=== PATIENT | male | born 1940 | race Caucasian/White ===

== ENCOUNTER 2016-12-06 17:05 | Inpatient (IN) | payer MEDICARE, OTHER ==
[~2016-12-06] VITALS: Ht 188 cm; Wt 77.2 kg
[~2016-12-06 17:05] MED LIST: BENA5; COUM5TAB PO; DIGO.125 PO; HYDR10TA16 PO; MULT-65 PO; WARF1TAB PO
[2016-12-06 18:29] VITALS: BP 144/90; PULSE 64; RESP 18; TEMP 98.2; O2SAT 98
[2016-12-06] MEDS ORDERED: WARF-18 PO (18:47)
[2016-12-06] MEDS ORDERED: DIGO0.12 PO (18:47)
[2016-12-06] MEDS ORDERED: OXYC-432 PO (18:47)
[2016-12-06] MEDS ORDERED: FERR325C (18:47)
[2016-12-06] MEDS ORDERED: BENA5TAB PO (18:47)
[2016-12-06] MEDS ORDERED: WARF-23 PO (18:47)
[2016-12-06] MEDS ORDERED: FERR1TAB37 (18:47)
[2016-12-06] MEDS ORDERED: MELO7.5T4 PO (18:49)
[2016-12-06] MEDS ORDERED: OMEP20TA PO (18:49)
--- NOTE | 2016-12-06 19:28 | PD ---
HPI Chief Complaint: Psychiatric Symptoms Time Seen by Provider: 19:23 Travel History International Travel<30 days: No Contact w/Intl Traveler<30days: No Traveled to known affect area: No History of Present Illness HPI 76-year-old male that presents to the ED for evaluation of psychiatric illness. Patient was [facility] acted eye nor drinker after he apparently appeared to be confused and altered. Patient went to the urgent care as he accidentally cut himself on his left fifth digit. Per patient he received care and had sutures but when he was asked about where he was he seemed to answer inappropriately and he was [facility] acted because patient refused to come to the ER to get evaluated for the confusion. Patient was sent to [facility] but they will not take him because he takes Coumadin. Patient takes Coumadin for atrial fibrillation. He denies any medical issues. He denies any pain of any kind. Per patient he is supposed to be going back to [place] to stay with his daughter as he recently lost his about 2 weeks ago. He denies any suicidal or homicidal ideation. He denies any psychiatric illness. He takes no medications for dementia or psychiatry. He denies any fevers chills or sweats. No other medical issues. PFSH Past Medical History Medical History: Unable to Obtain Cancer: No Cardiovascular Problems: No Diabetes: No Endocrine: No Genitourinary: No Hepatitis: No Hiatal Hernia: No Immune Disorder: No Musculoskeletal: No Neurologic: No Psychiatric: No Respiratory: No Thyroid Disease: No Past Surgical History Abdominal Surgery: Yes (BILAT HERNIA (STATES PROBABLY)) AICD: No Cardiac Surgery: No Ear Surgery: No Endocrine Surgery: No Eye Surgery: No Genitourinary Surgery: No Gynecologic Surgery: No Joint Replacement: No Oral Surgery: Yes (TONSILLECTOMY (STATES PROBABLY)) Pacemaker: No Thoracic Surgery: No Social History Alcohol Use: No Tobacco Use: No Substance Use: No Allergies-Medications (Allergen,Severity, Reaction): Coded Allergies: No Known Allergies (Unverified , 12/06/16) Reported Meds & Prescriptions Reported Meds & Active Scripts Active Reported Omeprazole 20 Mg Tab 20 Mg PO DAILY Iron (Ferrous Sulfate) 325 Mg Capsule.er Digoxin 0.125 Mg Tab 0.125 Mg PO DAILY Oxycodone-Acetaminophen 5-325 mg Tab 2 Tab PO BID PRN Benazepril (Benazepril HCl) 5 Mg Tab 5 Mg PO DAILY Warfarin 2.5 Mg Tab 2.5 Mg PO MONDAY Warfarin 5 Mg Tab 5 Mg PO SUTUWETHFRSA Review of Systems Except as stated in HPI: all other systems reviewed are Neg Physical Exam Narrative GENERAL: SKIN: Warm and dry. HEAD: Atraumatic. Normocephalic. EYES: Pupils equal and round 4 mm reactive to light and accommodation. No scleral icterus. No injection or drainage. ENT: No nasal bleeding or discharge. Mucous membranes pink and moist. Tongue is midline. No uvula deviation. NECK: Trachea midline. No JVD. CARDIOVASCULAR: Regular rate and rhythm. No murmurs, S3, S4. RESPIRATORY: No accessory muscle use. Clear to auscultation. Breath sounds equal bilaterally. GASTROINTESTINAL: Abdomen soft, non-tender, nondistended. Hepatic and splenic margins not palpable. MUSCULOSKELETAL: Extremities without clubbing, cyanosis, or edema. No obvious deformities. Full range of motion of the upper and lower extremities bilaterally. 2+ pulses bilaterally. NEUROLOGICAL: Awake and alert and oriented 4. No obvious cranial nerve deficits. Motor grossly within normal limits. Five out of 5 muscle strength in the arms and legs. Normal speech. PSYCHIATRIC: Appropriate mood and affect; insight and judgment normal. Data Data Last Documented VS Vital Signs Date Time Temp Pulse Resp B/P Pulse Ox O2 Delivery O2 Flow Rate FiO2 12/06/16 18:29 98.2 64 18 144/90 98 Room Air Orders Complete Blood Count With Diff (12/06/16 18:34) Comprehensive Metabolic Panel (12/06/16 18:34) Urinalysis - C+S If Indicated (12/06/16 18:34) Psych Screen (12/06/16 18:34) Drug Screen, Random Urine (12/06/16 18:34) Alcohol (Ethanol) (12/06/16 18:34) Salicylates (Aspirin) (12/06/16 18:34) Tylenol (Acetaminophen) (12/06/16 18:34) Electrocardiogram (12/06/16 18:48) Prothrombin Time / Inr (Pt) (12/06/16 18:48) Act Partial Throm Time (Ptt) (12/06/16 18:48) Ct Brain W/O Iv Contrast(Rout) (12/06/16 ) Digoxin (12/06/16 19:45) Labs Laboratory Tests Test 12/06/16 12/06/16 19:02 19:22 White Blood Count 5.3 TH/MM3 Red Blood Count 3.95 MIL/MM3 Hemoglobin 11.4 GM/DL Hematocrit 34.2 % Mean Corpuscular Volume 86.7 FL Mean Corpuscular Hemoglobin 28.8 PG Mean Corpuscular Hemoglobin 33.2 % Concent Red Cell Distribution Width 15.1 % Platelet Count 174 TH/MM3 Mean Platelet Volume 8.3 FL Neutrophils (%) (Auto) 65.8 % Lymphocytes (%) (Auto) 23.3 % Monocytes (%) (Auto) 9.2 % Eosinophils (%) (Auto) 0.8 % Basophils (%) (Auto) 0.9 % Neutrophils # (Auto) 3.5 TH/MM3 Lymphocytes # (Auto) 1.2 TH/MM3 Monocytes # (Auto) 0.5 TH/MM3 Eosinophils # (Auto) 0.0 TH/MM3 Basophils # (Auto) 0.0 TH/MM3 CBC Comment DIFF FINAL Differential Comment Prothrombin Time 31.6 SEC Prothromb Time International 2.7 RATIO Ratio Activated Partial 45.9 SEC Thromboplast Time Sodium Level 132 MEQ/L Potassium Level 3.9 MEQ/L Chloride Level 96 MEQ/L Carbon Dioxide Level 27.5 MEQ/L Anion Gap 9 MEQ/L Blood Urea Nitrogen 22 MG/DL Creatinine 0.77 MG/DL Estimat Glomerular Filtration 98 ML/MIN Rate Random Glucose 95 MG/DL Calcium Level 8.7 MG/DL Total Bilirubin 0.7 MG/DL Aspartate Amino Transf 26 U/L (AST/SGOT) Alanine Aminotransferase 33 U/L (ALT/SGPT) Alkaline Phosphatase 62 U/L Total Protein 6.1 GM/DL Albumin 3.3 GM/DL Salicylates Level LESS THAN 1.7 MG/DL Acetaminophen Level 3.5 MCG/ML Ethyl Alcohol Level LESS THAN 3 MG/DL Urine Color YELLOW Urine Turbidity CLEAR Urine pH 6.5 Urine Specific [place] 1.021 Urine Protein NEG mg/dL Urine Glucose (UA) NEG mg/dL Urine Ketones NEG mg/dL Urine Occult Blood NEG Urine Nitrite NEG Urine Bilirubin NEG Urine Urobilinogen LESS THAN 2.0 MG/DL Urine Leukocyte Esterase NEG Urine RBC LESS THAN 1 /hpf Urine WBC 1 /hpf Urine Hyaline Casts 1 /lpf Urine Mucus FEW /lpf Microscopic Urinalysis Comment CULT NOT INDICATED Urine Opiates Screen NEG Urine Barbiturates Screen NEG Urine Amphetamines Screen NEG Urine Benzodiazepines Screen NEG Urine Cocaine Screen NEG Urine Cannabinoids Screen NEG MDM Medical Decision Making Medical Screen Exam Complete: Yes Emergency Medical Condition: Yes Medical Record Reviewed: Yes Interpretation(s) CBC & BMP Diagram 12/06/16 19:02 LFTs WNL UA negative Last Impressions Head CT 12/06/16 0000 Signed Impressions: Service Date/Time: Tuesday, December 06, 2016 20:04 - CONCLUSION: 1. No acute findings. Mild white matter ischemic changes. Cristian Riggs MD tox negative Coags with INR of 2.7 Differential Diagnosis Depression versus suicidal ideation versus anxiety versus adjustment disorder versus mood disorder versus bipolar disorder versus schizophrenia versus paranoid disorder versus psychosis versus substance abuse versus alcohol abuse versus alcohol induced psychosis versus homicidality addition versus cutting versus personality disorder versus altered mental status Narrative Course 76-year-old male that presents to the ED for evaluation of psych. Patient was properly examined and was found to have signs and symptoms of unclear etiology. Patient was [facility] acted because he was confused during an interview with the urgent care doctor for evaluation of a laceration. Patient was [facility] acted because he refused to go to the ER. Patient was brought here for evaluation. Per my examination patient does appear to be alert and oriented though somewhat confused on the date. He answers all the questions appropriately. At this time and will do labs and imaging to make sure patient does not have anything acute. Patient will be medically clear pending labs. Okay to be seen by psych. Mental health screening was discussed with the patient. Diagnosis Primary Impression: Confusion Additional Impression: Medical clearance for psychiatric admission Carlos Bob Dec 06, 2016 19:28
[2016-12-06 19:46] LABS: AUTOMATED NEUTROPHIL # 3.5 TH/MM3 (1.8-7.7); BASOPHIL % 0.9 % (0.0-2.0); EOSINOPHIL % 0.8 % (0.0-4.0); HEMATOCRIT 34.2 % (39.0-51.0); HEMO FLAGS DIFF FINAL; LYMPH % 23.3 % (9.0-44.0); LYMPHOCYTE # 1.2 TH/MM3 (1.0-4.8); MEAN CELL VOLUME 86.7 FL (80.0-100.0); MEAN CORPUSCULAR HEMOGLOBIN 28.8 PG (27.0-34.0); MEAN CORPUSCULAR HGB CONC 33.2 % (32.0-36.0); MONO % 9.2 % (0.0-8.0); NEUT % 65.8 % (16.0-70.0); PLATELET COUNT 174 TH/MM3 (150-450); RED BLOOD COUNT 3.95 MIL/MM3 (4.50-5.90); RED CELL DISTRIBUTION WIDTH 15.1 % (11.6-17.2); WHITE BLOOD COUNT 5.3 TH/MM3 (4.0-11.0)
[2016-12-06 19:48] LABS: BLOOD, URINE NEG (NEG); COMMENT (UR) CULT NOT INDICATED; CULTURE IF INDICATED CULT NOT INDICATED; GLUCOSE,URINE NEG (NEG); HYALINE CAST, URINE 1 /lpf (RARE); KETONE, URINE NEG (NEG); MUCUS URINE FEW /lpf (OCC); NITRITE,URINE NEG (NEG); PH, URINE 6.5 (5.0-8.5); URINE COLOR YELLOW (YELLW/STRAW)
[2016-12-06 19:54] LABS: AMPHETAMINE, URINE NEG (NEG); BARBITURATES, URINE NEG (NEG); COCAINE, URINE NEG (NEG)
[2016-12-06 20:00] LABS: APTT (PATIENT) 45.9 SEC (24.3-30.1); INTERNATIONAL NORMALIZED RATIO 2.7 RATIO; PROTHROMBIN TIME - PATIENT 31.6 SEC (9.8-11.6)
[2016-12-06 20:16] LABS: ANION GAP 9 MEQ/L (5-15); BICARBONATE 27.5 MEQ/L (21.0-32.0); BLOOD UREA NITROGEN 22 MG/DL (7-18); CHLORIDE 96 MEQ/L (98-107); GLOMERULAR FILTRATION RATE 98 ML/MIN (>89); POTASSIUM 3.9 MEQ/L (3.5-5.1); SODIUM (NA) 132 MEQ/L (136-145)
[2016-12-06 20:18] LABS: ACETAMINOPHEN 3.5 MCG/ML (10.0-30.0); ALT (GPT) 33 U/L (12-78); AST (GOT) 26 U/L (15-37)
[2016-12-06 20:20] LABS: ALKALINE PHOSPHATASE 62 U/L (45-117); TOTAL BILIRUBIN ADULT 0.7 MG/DL (0.2-1.0)
--- NOTE | 2016-12-06 20:28 | RADRPT ---
EXAM DATE/TIME: 12/06/2016 20:04 [facility] COMPARISON: No previous studies available for comparison. INDICATIONS : Altered mental status. RADIATION DOSE: 56.35 CTDIvol (mGy) MEDICAL HISTORY : None SURGICAL HISTORY : Orthopedic ENCOUNTER: Initial ACUITY: 1 day PAIN SCALE: 0/10 LOCATION: cranial TECHNIQUE: Multiple contiguous axial images were obtained of the head. Using automated exposure control and adj ustment of the mA and/or kV according to patient size, radiation dose was kept as low as reasonably a chievable to obtain optimal diagnostic quality images. FINDINGS: CEREBRUM: The ventricles are normal for age. No evidence of midline shift, mass lesion, hemorrhage or acute in farction. No extra-axial fluid collections are seen. POSTERIOR FOSSA: The cerebellum and brainstem are intact. The 4th ventricle is midline. The cerebellopontine angle i s unremarkable. EXTRACRANIAL: The visualized portion of the orbits is intact. SKULL: The calvaria is intact. No evidence of skull fracture. CONCLUSION: 1. No acute findings. Mild white matter ischemic changes. Cristian Riggs MD on December 06, 2016 at 20:25 Board Certified Radiologist. This report was verified electronically.
[2016-12-06 22:32] VITALS: BP 127/74; PULSE 62; RESP 18; O2SAT 97
[2016-12-07 02:19] VITALS: BP 131/75; PULSE 47; RESP 18; TEMP 97.8; O2SAT 97
[2016-12-07 04:07] VITALS: BP 120/74; PULSE 64; RESP 18; TEMP 96.8; O2SAT 98
[2016-12-07] MEDS ORDERED: MAGNESIUM HYDROXIDE SUSP 30 ML CUP PO PRN (04:45)
[2016-12-07] MEDS ORDERED: ACETAMINOPHEN 325 MG TAB PO PRN (04:45)
[2016-12-07] MEDS ORDERED: LORazepam 0.5 MG TAB age > 65 yrs PO PRN (04:45)
[2016-12-07] MEDS ORDERED: LORazepam 2 MG/ML VIAL - age > 65 yrs IM PRN (04:45)
[2016-12-07] MEDS ORDERED: ALUMINUM/MAGNESIUM/SIMETH 30 ML CUP PO PRN (04:45)
[2016-12-07 05:54] VITALS: BP 111/65; PULSE 57; RESP 18; TEMP 98.1
[2016-12-07] MEDS: PANTOPRAZOLE SOD 20 MG DELAYED RELEASE TAB PO SCH (06:37)
[2016-12-07] MEDS: FERROUS SULFATE 325 MG (65 MG ELEMENTAL IRON) TAB PO SCH ×2 (06:37→17:25)
--- NOTE | 2016-12-07 06:48 | EKG ---
Date Performed: 12/06/2016 Time Performed: 19:09:27 PTAGE: 76 years EKG: ATRIAL FIBRILLATION WITH SLOW VENTRICULAR RESPONSE LATERAL MYOCARDIAL INFARCTION ABNORMAL E CG NO PREVIOUS TRACING DOCTOR: Cruz Sampson Interpretating Date/Time 12/07/2016 06:46:20
[2016-12-07] MEDS ORDERED: MELOXICAM 7.5 MG TAB PO SCH (09:00)
[2016-12-07] MEDS: DIGOXIN 0.125 MG TAB PO SCH (09:31)
[2016-12-07] MEDS: LISINOPRIL 5 MG TAB PO SCH (09:31)
[2016-12-07] MEDS ORDERED: MELOXICAM 7.5 MG TAB PO PRN (14:15)
--- NOTE | 2016-12-07 14:46 | PD.CONS ---
HPI Service [facility] Hospitalists Consult Requested By Dr. April Sosa Reason for Consult Medical Management Primary Care Physician Baron Johnston M.D. Diagnoses: History of Present Illness Mr. Cummins is a 76 y/o male with atrial fibrillation, chronic back pain, hx of lumbar compression fracture, and hyperlipidemia. He was sent to the ED on from an urgent care office. Patient went to the urgent care after he he accidentally cut himself on his left fifth digit. Pt reports that he received care and had sutures placed but when he questioned further about where he was he seemed to answer inappropriately and he was [facility] acted because he refused to go to the ER to get evaluated. Patient does appear to be alert and oriented though somewhat confused on the date. Per review of outpatient records pt had recently fallen in early November and complained of rib pain but there was no fractures found on Xray. Head CT in the ED with no acute findings and some mild white matter ischemic changes. His Na+ is a bit low at 132 but otherwise his lab work so far is fairly stable. UA was negative. He answers all the questions appropriately. No other acute complaints. On direct questioning, pt does NOT know where he is currently located. Pt does NOT know the year. Pt told me that he needs to leave to help care for his . Pt's recently . 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 Iron deficiency Past Surgical History Cataract surgery Foot surgery Rotator cuff repair Reported Medications -Omeprazole 20 Mg PO DAILY -Iron (Ferrous Sulfate) 325 Mg PO BID -Digoxin 0.125 Mg PO DAILY -Oxycodone-Acetaminophen 5-325 mg 2 Tab PO BID PRN -Benazepril 5 Mg PO DAILY -Warfarin 2.5 Mg PO MONDAY -Warfarin 5 Mg PO SUTUWETHFRSA --Meloxicam 7.5Mg PO 1-2 tablets DAILY PRN Allergies: Coded Allergies: No Known Allergies (Unverified , 12/06/16) Family History Noncontributory Social History No reported alcohol, tobacco or illicit drug use 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 HEENT: Atraumatic. Normocephalic. No temporal or scalp tenderness. No scleral icterus. Airway patent. NECK: Trachea midline, supple, nontender. CARDIO: Regular. RESP: CTA bilaterally. No wheezes, rales, or rhonchi. ABD: +BS, soft, non-tender, nondistended. EXT: Extremities without clubbing, cyanosis, or edema. NEURO: Awake and alert. Motor and sensory grossly within normal limits. Normal speech. Laboratory Laboratory Tests Test 12/06/16 12/06/16 12/07/16 19:02 19:22 06:50 White Blood Count 5.3 Red Blood Count 3.95 Hemoglobin 11.4 Hematocrit 34.2 Mean Corpuscular Volume 86.7 Mean Corpuscular Hemoglobin 28.8 Mean Corpuscular Hemoglobin 33.2 Concent Red Cell Distribution Width 15.1 Platelet Count 174 Mean Platelet Volume 8.3 Neutrophils (%) (Auto) 65.8 Lymphocytes (%) (Auto) 23.3 Monocytes (%) (Auto) 9.2 Eosinophils (%) (Auto) 0.8 Basophils (%) (Auto) 0.9 Neutrophils # (Auto) 3.5 Lymphocytes # (Auto) 1.2 Monocytes # (Auto) 0.5 Eosinophils # (Auto) 0.0 Basophils # (Auto) 0.0 CBC Comment DIFF FINAL Differential Comment Prothrombin Time 31.6 Prothromb Time International 2.7 Ratio Activated Partial 45.9 Thromboplast Time Sodium Level 132 Potassium Level 3.9 Chloride Level 96 Carbon Dioxide Level 27.5 Anion Gap 9 Blood Urea Nitrogen 22 Creatinine 0.77 Estimat Glomerular Filtration 98 Rate Random Glucose 95 Calcium Level 8.7 Total Bilirubin 0.7 Aspartate Amino Transf 26 (AST/SGOT) Alanine Aminotransferase 33 (ALT/SGPT) Alkaline Phosphatase 62 Total Protein 6.1 Albumin 3.3 Digoxin Level 0.6 Salicylates Level LESS THAN 1.7 Acetaminophen Level 3.5 Ethyl Alcohol Level LESS THAN 3 Urine Color YELLOW Urine Turbidity CLEAR Urine pH 6.5 Urine Specific [place] 1.021 Urine Protein NEG Urine Glucose (UA) NEG Urine Ketones NEG Urine Occult Blood NEG Urine Nitrite NEG Urine Bilirubin NEG Urine Urobilinogen LESS THAN 2.0 Urine Leukocyte Esterase NEG Urine RBC LESS THAN 1 Urine WBC 1 Urine Hyaline Casts 1 Urine Mucus FEW Microscopic Urinalysis Comment CULT NOT INDICATED Urine Opiates Screen NEG Urine Barbiturates Screen NEG Urine Amphetamines Screen NEG Urine Benzodiazepines Screen NEG Urine Cocaine Screen NEG Urine Cannabinoids Screen NEG Erythrocyte Sedimentation Rate 7 Folate GREATER THAN 20.0 Anti-Nuclear Antibody Screen NEG Result Diagram: 12/06/16 1902 12/06/16 1902 Imaging Last Impressions Head CT 12/06/16 0000 Signed Impressions: Service Date/Time: Tuesday, December 06, 2016 20:04 - CONCLUSION: 1. No acute findings. Mild white matter ischemic changes. Cristian Riggs MD Assessment and Plan Problem List: (1) Altered mental status Status: Acute Plan: - suspect unmasked dementia - obtain TSH, free T4, b12, folate, rpr - obtain MRI brain. (2) Adjustment disorder Status: Acute Plan: - mgmt per Psychiatry (3) Atrial fibrillation Status: Chronic Plan: - stable - digoxin - INR 2.7 (12/07) - repeat INR in AM (4) HTN (hypertension) Status: Chronic Plan: - stable lisinopril (5) OA (osteoarthritis) Status: Chronic Plan: - mobic - prn percocet (6) H/O porphyria Status: Acute Plan: will review outpt records Assessment and Plan Patient examined. Assessment and plan formulated with Salma Schofield PA-C. I agree with the above. Problem Qualifiers (1) Adjustment disorder: Qualified Code: F43.20 - Adjustment disorder, unspecified type (2) Atrial fibrillation: Qualified Code: I48.2 - Chronic atrial fibrillation (3) HTN (hypertension): Qualified Code: I10 - Essential hypertension (4) OA (osteoarthritis): Qualified Code: M19.90 - Osteoarthritis, unspecified osteoarthritis type, unspecified site Salma Schofield Dec 07, 2016 14:46 Silvestre Marie DO Dec 07, 2016 16:30
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
[2016-12-07] MEDS: WARFARIN SOD 5 MG TAB PO SCH (16:00)
[2016-12-07 18:00] VITALS: BP 118/62; PULSE 63; RESP 18; TEMP 97; O2SAT 97
[2016-12-08 05:11] VITALS: BP 118/63; PULSE 82; RESP 18; TEMP 97.9
[2016-12-08] MEDS: FERROUS SULFATE 325 MG (65 MG ELEMENTAL IRON) TAB PO SCH ×2 (06:01→16:00)
[2016-12-08] MEDS: PANTOPRAZOLE SOD 20 MG DELAYED RELEASE TAB PO SCH (06:01)
[2016-12-08 08:39] LABS: INTERNATIONAL NORMALIZED RATIO 1.8 RATIO; PROTHROMBIN TIME - PATIENT 20.2 SEC (9.8-11.6)
[2016-12-08 09:34] LABS: FREE T4 0.95 NG/DL (0.76-1.46); LDL CHOLESTEROL 71 MG/DL (0-99)
[2016-12-08] MEDS: LISINOPRIL 5 MG TAB PO SCH (09:37)
[2016-12-08] MEDS: DIGOXIN 0.125 MG TAB PO SCH (09:37)
[2016-12-08 10:23] LABS: RAPID PLASMA REAGIN SCREEN NON-REACTIVE (NON-REACTVE)
[2016-12-08 16:09] LABS: HEMOGLOBIN A1a 1.2 %; HEMOGLOBIN A1b 0.8 %; HEMOGLOBIN Ao 85.5 %; HEMOGLOBIN F 0.9 %; HEMOGLOBIN LA1C 1.9 %; HEMOGLOBIN P3 3.8 %
[2016-12-08 18:00] VITALS: BP 93/57; PULSE 65; RESP 16; TEMP 97.1; O2SAT 100
[2016-12-09] MEDS: FERROUS SULFATE 325 MG (65 MG ELEMENTAL IRON) TAB PO SCH ×2 (05:45→16:00)
[2016-12-09] MEDS: PANTOPRAZOLE SOD 20 MG DELAYED RELEASE TAB PO SCH (05:45)
[2016-12-09 06:18] VITALS: BP 111/66; PULSE 70; RESP 17; TEMP 97.8; O2SAT 100
[2016-12-09] MEDS: DIGOXIN 0.125 MG TAB PO SCH (09:32)
[2016-12-09] MEDS: LISINOPRIL 5 MG TAB PO SCH (09:32)
--- NOTE | 2016-12-09 16:11 | RADRPT ---
EXAM DATE/TIME: 12/09/2016 15:44 [facility] COMPARISON: No previous studies available for comparison. INDICATIONS : Evaluate for foregin body pre-MRI MEDICAL HISTORY : None. SURGICAL HISTORY : None. ENCOUNTER: Initial ACUITY: 1 day PAIN SCORE: 0/10 LOCATION: Bilateral chest FINDINGS: No heart is mildly enlarged. There are chronic interstitial changes within the pulmonary parenchyma. The visualized bony structures are grossly intact. CONCLUSION: 1. Cardiomegaly and COPD changes. No acute abnormality. Sarbjit Christiansen MD on December 09, 2016 at 16:08 Board Certified Radiologist. This report was verified electronically.
--- NOTE | 2016-12-09 17:25 | RADRPT ---
EXAM DATE/TIME: 12/09/2016 15:45 [facility] COMPARISON: No previous studies available for comparison. INDICATIONS : Evaluate for foreign body pre-MRI MEDICAL HISTORY : None. SURGICAL HISTORY : None. ENCOUNTER: Initial ACUITY: 1 day PAIN SCORE: 0/10 LOCATION: Bilateral abdomen FINDINGS: Supine view of the abdomen was performed. The abdominal bowel gas pattern is normal. No abnormal ma sses, calcifications, or organomegaly is seen. Small calcifications in the pelvis likely reflect phl eboliths. No metallic radiopaque foreign bodies are visualized. The osseous structures are unremarkab le. CONCLUSION: 1. No metallic radiopaque foreign bodies. Tom Estrella MD on December 09, 2016 at 17:22 Board Certified Radiologist. This report was verified electronically.
--- NOTE | 2016-12-09 17:30 | RADRPT ---
EXAM DATE/TIME: 12/09/2016 16:22 [facility] COMPARISON: No previous studies available for comparison. INDICATIONS : Altered mental status. CONTRAST: 17 cc Omniscan (gadodiamide) IV MEDICAL HISTORY : None. SURGICAL HISTORY : CLEARED BY RAD ENCOUNTER: Initial ACUITY: 3 day PAIN SCORE: 0/10 LOCATION: Head TECHNIQUE: Multiplanar, multisequence MRI of the brain was performed both prior to and following the administrat ion of paramagnetic contrast. FINDINGS: CEREBRUM: The ventricles are normal for age. No evidence of midline shift, mass lesion, hemorrhage or acute in farction. No extraaxial fluid collections are seen. The pituitary gland and suprasellar cistern are normal in configuration. WHITE MATTER: There are scattered areas of increased T2 signal most consistent with mild microvascular ischemic dem yelinative change. POSTERIOR FOSSA: The cerebellum and brainstem are intact. The 4th ventricle is midline. The cerebellopontine angle is unremarkable. The cerebellar tonsils are normal in position. DIFFUSION IMAGING: No focal areas of restricted diffusion are seen. No evidence of acute infarction. EXTRACRANIAL: The visualized portions of the orbits and paranasal sinuses are unremarkable. POST-CONTRAST: No abnormal areas of parenchymal or dural enhancement. No evidence of blood-brain barrier breakdown. CONCLUSION: 1. Mild microvascular ischemic demyelinative changes. 2. No acute intracranial abnormality identified. Sarbjit Christiansen MD on December 09, 2016 at 17:24 Board Certified Radiologist. This report was verified electronically.
[2016-12-09] MEDS ORDERED: GADODIAMIDE PF 287 MG/ML 5 ML VIAL (for RAD MRI) IV ONE (17:47)
[2016-12-09 18:27] VITALS: BP 133/60; PULSE 71; RESP 16; TEMP 97.4; O2SAT 95
[2016-12-10 06:00] VITALS: BP_SYST 120; BP_SYST 133; BP_DIAS 60; BP_DIAS 71; PULSE 62; PULSE 71; RESP 16; TEMP 97.4; TEMP 98; O2SAT 100; O2SAT 95
[2016-12-10] MEDS: PANTOPRAZOLE SOD 20 MG DELAYED RELEASE TAB PO SCH (06:14)
[2016-12-10] MEDS: FERROUS SULFATE 325 MG (65 MG ELEMENTAL IRON) TAB PO SCH ×2 (06:14→18:17)
[2016-12-10] MEDS: DIGOXIN 0.125 MG TAB PO SCH (10:54)
[2016-12-10] MEDS: LISINOPRIL 5 MG TAB PO SCH (10:54)
--- NOTE | 2016-12-10 12:46 | HHI.PYPN ---
Subjective Remarks Pt seen and discussed with staff. He is oriented to self only. He has been somewhat irritable with staff. He is taking medications. He presents with cognitive impairment. He was calling family and reporting that he had been discharged. Objective Alert: Yes [place]: Person, Place Mood: Other (irritable) Affect: Restricted Memory Intact: Comment (impaired) Hallucinations: Other (none) Delusions: No Delusion Type: Other (none) Suicidal: Ideation (denies) Homicidal: Ideation (denies) Insight/Judgment poor Vitals/IOs Vital Signs Date Time Temp Pulse Resp B/P Pulse Ox O2 Delivery O2 Flow Rate FiO2 12/10/16 06:00 98.0 62 16 120/71 100 12/07/16 02:19 Room Air Intake and Output 12/09/16 12/09/16 12/10/16 08:00 16:00 00:00 Intake Total 480 ml 2180 ml Balance 480 ml 2180 ml Assessment & Plan Problem List: (1) Adjustment disorder with disturbance of conduct ICD Code: F43.24 (2) Dementia of Alzheimer's type with behavioral disturbance ICD Code: G30.8 Assessment & Plan Continue current tx plan Estimated LOS: days Justification for Cont. Inpt. impairments in safety Problem Qualifiers (1) Dementia of Alzheimer's type with behavioral disturbance: Qualified Code: G30.8 - Alzheimer's dementia with behavioral disturbance, unspecified timing of dementia onset Gloria Gonzalez MD Dec 10, 2016 12:46
[2016-12-10 18:00] VITALS: BP 133/75; PULSE 59; TEMP 98.8; O2SAT 100
[2016-12-11 05:39] VITALS: BP 106/62; PULSE 53; RESP 18; TEMP 98.3
[2016-12-11] MEDS: FERROUS SULFATE 325 MG (65 MG ELEMENTAL IRON) TAB PO SCH ×2 (06:21→16:26)
[2016-12-11] MEDS: PANTOPRAZOLE SOD 20 MG DELAYED RELEASE TAB PO SCH (06:21)
[2016-12-11] MEDS: oxyCODONE/ACETAMINOPHEN 5 MG/325 MG TAB PO PRN (06:24)
[2016-12-11] MEDS: DIGOXIN 0.125 MG TAB PO SCH (09:00)
[2016-12-11] MEDS: LISINOPRIL 5 MG TAB PO SCH (09:00)
[2016-12-11 09:17] VITALS: BP 104/59; PULSE 55
--- NOTE | 2016-12-11 11:21 | HHI.PR ---
Subjective Remarks No new complaints. Objective Vitals Vital Signs Date Time Temp Pulse Resp B/P Pulse Ox O2 Delivery O2 Flow Rate FiO2 12/11/16 09:17 55 104/59 12/11/16 05:39 98.3 53 18 106/62 12/10/16 18:00 98.8 59 133/75 100 12/10/16 12/10/16 12/11/16 15:00 23:00 07:00 Intake Total 600 ml 840 ml Balance 600 ml 840 ml Intake Oral 240 ml 840 ml Oral Supplement 360 ml # Voids 1 2 Imaging Last Impressions Chest X-Ray 12/09/16 0000 Signed Impressions: Service Date/Time: Friday, December 09, 2016 15:44 - CONCLUSION: 1. Cardiomegaly and COPD changes. No acute abnormality. Sarbjit Christiansen MD Brain MRI 12/09/16 0000 Signed Impressions: Service Date/Time: Friday, December 09, 2016 16:22 - CONCLUSION: 1. Mild microvascular ischemic demyelinative changes. 2. No acute intracranial abnormality identified. Sarbjit Christiansen MD Abdomen X-Ray 12/09/16 0000 Signed Impressions: Service Date/Time: Friday, December 09, 2016 15:45 - CONCLUSION: 1. No metallic radiopaque foreign bodies. Tom Estrella MD Head CT 12/06/16 0000 Signed Impressions: Service Date/Time: Tuesday, December 06, 2016 20:04 - CONCLUSION: 1. No acute findings. Mild white matter ischemic changes. Cristian Riggs MD Objective Remarks GENERAL: This is a well-nourished, well-developed patient, in no apparent distress. CARDIOVASCULAR: Regular rate and rhythm without murmurs, gallops, or rubs. RESPIRATORY: Clear to auscultation. Breath sounds equal bilaterally. No wheezes , rales, or rhonchi. GASTROINTESTINAL: Abdomen soft, non-tender, nondistended. Normal active bowel sounds MUSCULOSKELETAL: Extremities without clubbing, cyanosis, or edema. NEURO: A&Ox2, but confused at times A/P Problem List: (1) Altered mental status Status: Acute Plan: - unmasked dementia - TSH, free T4, b12, rpr --> WNL - MRI brain (12/09/16) --> NO acute findings - trial of Aricept 5mg Daily - Pt cannot return to living independently upon discharge (2) Adjustment disorder Status: Acute Plan: - mgmt per Psychiatry (3) Atrial fibrillation Status: Chronic Plan: - stable - digoxin - INR 2.7 (12/07) - repeat INR in AM (4) HTN (hypertension) Status: Chronic Plan: - trending low - stop lisinopril - observe (5) OA (osteoarthritis) Status: Chronic Plan: - mobic - prn percocet Problem Qualifiers (1) Adjustment disorder: Qualified Code: F43.20 - Adjustment disorder, unspecified type (2) Atrial fibrillation: Qualified Code: I48.2 - Chronic atrial fibrillation (3) HTN (hypertension): Qualified Code: I10 - Essential hypertension (4) OA (osteoarthritis): Qualified Code: M19.90 - Osteoarthritis, unspecified osteoarthritis type, unspecified site Silvestre Marie DO Dec 11, 2016 11:21
--- NOTE | 2016-12-11 11:25 | HHI.PYPN ---
Subjective Remarks Pt seen and discussed with staff. He remains discharge focused but has been more pleasant and less irritable today. Insight into condition remains poor. Expressing grief to RNs over of . No SI/HI Objective Alert: Yes [place]: Person, Place Mood: Calm Affect: Restricted Memory Intact: Comment (impaired) Hallucinations: Other (none) Delusions: No Delusion Type: Other (none) Suicidal: Ideation (denies) Homicidal: Ideation (denies) Insight/Judgment limited Vitals/IOs Vital Signs Date Time Temp Pulse Resp B/P Pulse Ox O2 Delivery O2 Flow Rate FiO2 12/11/16 09:17 55 104/59 12/11/16 05:39 98.3 18 12/10/16 18:00 100 Intake and Output 12/10/16 12/10/16 12/11/16 08:00 16:00 00:00 Intake Total 240 ml 360 ml 840 ml Balance 240 ml 360 ml 840 ml Assessment & Plan Problem List: (1) Adjustment disorder with disturbance of conduct ICD Code: F43.24 (2) Dementia of Alzheimer's type with behavioral disturbance ICD Code: G30.8 Assessment & Plan Continue current tx plan. Estimated LOS: days Justification for Cont. Inpt. risk of decompensation Problem Qualifiers (1) Dementia of Alzheimer's type with behavioral disturbance: Qualified Code: G30.8 - Alzheimer's dementia with behavioral disturbance, unspecified timing of dementia onset Gloria Gonzalez MD Dec 11, 2016 11:25
[2016-12-11] MEDS: DONEPEZIL HCL 5 MG TAB PO SCH (12:55)
[2016-12-12 05:28] VITALS: BP 111/60; PULSE 63; RESP 16; TEMP 97.7; O2SAT 95
[2016-12-12] MEDS: oxyCODONE/ACETAMINOPHEN 5 MG/325 MG TAB PO PRN (05:49)
[2016-12-12] MEDS: FERROUS SULFATE 325 MG (65 MG ELEMENTAL IRON) TAB PO SCH ×2 (05:49→16:00)
[2016-12-12] MEDS: PANTOPRAZOLE SOD 20 MG DELAYED RELEASE TAB PO SCH (05:49)
--- NOTE | 2016-12-12 08:48 | HHI.PYPN ---
Subjective Remarks Patient seen in day room with nurse Martha, covering for Dr. webb, chart review, patient compliant medications. Patient sitting calmly in the day room staff states no behavior problems noted. Somewhat diffusely confused but focusing somewhat on discharge also. For now continue treatment Review of Systems Except as stated in HPI: all other systems reviewed are Neg Objective Alert: Yes [place]: Person, Place Mood: Calm Affect: Restricted Memory Intact: Comment (impaired) Hallucinations: Other (none) Delusions: No Delusion Type: Other (none) Suicidal: Ideation (denies) Homicidal: Ideation (denies) Insight/Judgment Poor Vitals/IOs Vital Signs Date Time Temp Pulse Resp B/P Pulse Ox O2 Delivery O2 Flow Rate FiO2 12/12/16 06:49 20 12/12/16 05:28 97.7 63 111/60 95 Intake and Output 12/11/16 12/11/16 12/12/16 08:00 16:00 00:00 Intake Total 1080 ml 960 ml Balance 1080 ml 960 ml Assessment & Plan Problem List: (1) Adjustment disorder with disturbance of conduct ICD Code: F43.24 (2) Dementia of Alzheimer's type with behavioral disturbance ICD Code: G30.8 Assessment & Plan Estimated LOS: days patient continues diffusely confused though calm, still somewhat sad and referred to of his . Compliant medications. For now continue treatment Justification for Cont. Inpt. At this time patient will decompensate him placed in a lower level of care Discharge Planning To be determined Problem Qualifiers (1) Dementia of Alzheimer's type with behavioral disturbance: Qualified Code: G30.8 - Alzheimer's dementia with behavioral disturbance, unspecified timing of dementia onset Juanjose Jean-Baptiste MD Dec 12, 2016 08:48
[2016-12-12] MEDS: DONEPEZIL HCL 5 MG TAB PO SCH (09:05)
[2016-12-12] MEDS: DIGOXIN 0.125 MG TAB PO SCH (09:06)
[2016-12-12] MEDS ORDERED: WARFARIN SOD 2.5 MG TAB PO SCH (16:00)
[2016-12-12 18:00] VITALS: BP 105/85; PULSE 69; RESP 18; TEMP 98.1; O2SAT 100
[2016-12-13 06:00] VITALS: BP 115/67; PULSE 65; RESP 17; O2SAT 99
[2016-12-13] MEDS: FERROUS SULFATE 325 MG (65 MG ELEMENTAL IRON) TAB PO SCH ×2 (06:22→16:00)
[2016-12-13] MEDS: PANTOPRAZOLE SOD 20 MG DELAYED RELEASE TAB PO SCH (06:22)
[2016-12-13] MEDS: DONEPEZIL HCL 5 MG TAB PO SCH (09:00)
[2016-12-13] MEDS: DIGOXIN 0.125 MG TAB PO SCH (09:00)
--- NOTE | 2016-12-13 12:55 | HHI.PYPN ---
Subjective Remarks Patient seen in day room with medical student Paul, chart review, patient compliant medications. Patient showing no behavior problems he is calm cooperative with me patient oriented to person place. Dressings were placed on his left thumb. Also has been cultured. For now continue treatment Review of Systems Except as stated in HPI: all other systems reviewed are Neg Objective Alert: Yes [place]: Person, Place Mood: Calm Affect: Restricted Memory Intact: Comment (impaired) Hallucinations: Other (none) Delusions: No Delusion Type: Other (none) Suicidal: Ideation (denies) Homicidal: Ideation (denies) Insight/Judgment Poor Labs Date/Time Procedure Status Source Growth 12/13/16 11:20 Gram Stain Received Wound Finger Pending 12/13/16 11:20 Wound Culture Received Wound Finger Pending Vitals/IOs Vital Signs Date Time Temp Pulse Resp B/P Pulse Ox O2 Delivery O2 Flow Rate FiO2 12/13/16 06:00 65 17 115/67 99 12/12/16 18:00 98.1 Intake and Output 12/12/16 12/12/16 12/13/16 08:00 16:00 00:00 Intake Total 0 ml 720 ml 1320 ml Output Total 1 ml Balance 0 ml 720 ml 1319 ml Assessment & Plan Problem List: (1) Adjustment disorder with disturbance of conduct ICD Code: F43.24 (2) Dementia of Alzheimer's type with behavioral disturbance ICD Code: G30.8 Assessment & Plan Estimated LOS: days patient calm cooperative is slightly irritable, continue somewhat confused though no behavioral problems. Asians will left thumb culture Justification for Cont. Inpt. At this time patient decompensate the placed in a lower level of care Discharge Planning To be determined Problem Qualifiers (1) Dementia of Alzheimer's type with behavioral disturbance: Qualified Code: G30.8 - Alzheimer's dementia with behavioral disturbance, unspecified timing of dementia onset Juanjose Jean-Baptiste MD Dec 13, 2016 12:55
[2016-12-13 17:42] VITALS: BP 128/72; PULSE 61; RESP 18; TEMP 97.9; O2SAT 97
[2016-12-14 06:24] VITALS: BP 139/63; PULSE 54; RESP 18; TEMP 97.4; O2SAT 93
[2016-12-14] MEDS: PANTOPRAZOLE SOD 20 MG DELAYED RELEASE TAB PO SCH (06:33)
[2016-12-14] MEDS: FERROUS SULFATE 325 MG (65 MG ELEMENTAL IRON) TAB PO SCH ×2 (06:33→16:00)
[2016-12-14] MEDS: DONEPEZIL HCL 5 MG TAB PO SCH (09:00)
[2016-12-14] MEDS: DIGOXIN 0.125 MG TAB PO SCH (10:25)
[2016-12-14] MEDS: oxyCODONE/ACETAMINOPHEN 5 MG/325 MG TAB PO PRN ×2 (10:26→11:47)
--- NOTE | 2016-12-14 13:53 | PD.TTN ---
Present for Treatment Team Treatment Team Staff: Provider (Dr. Sosa), Nurse (Jania), Psych Therapist ( Jeanne Abrams), Clinical Specialist, Occupational Therapist (Stella) Patient Problems 1. Discharge planning 2. Medication compliance 3. Knowledge deficit 4. Lack of coping skills Progress Toward Goals Provider Input: Dr. Sosa inquired regarding patient's insight and judgment and asked the patient to explain what his understanding of why patient had to be admitted to the hospital. Patient reported that he learned he needs to control himslef and his temper. Dr. Sosa inquired regarding the content of patient's conversations with his daughter and requested patient ask his daughter what the reason was for this hospitalization. Patient reported he yelled and did not physically touch anyone. Dr. Sosa asked appropriate questions of the patient in regards to patient's insight regarding his mental illness. Patient did finally admit he was confused. Dr. Sosa requested the patient call his daughter and ask when she can come to [place] and pick the patient up. Nurse Input: Nurse Jania inquired regarding patient's sutchers and if they should be removed. Psych Therapist Input: Counselor offered an update regarding patient's mental status and reported he remains medication compliant and without behavioral incident. Counselor reported the patient remains discharged focused and willing to accept assistance from his neighbors. Counselor reported the patient is planning to move in with his daughter who resides in [place]. Patient reports he had many loose ends to tie up and that is why he did not move to [place] when his daughter came to escort him. Counselor has spoke to patient's duaghter who reports she is not available to come pick the patient up in the next few weeks as she recently started a new job. Jeanne Abrams RMI Dec 14, 2016 13:53
[2016-12-14] MEDS: WARFARIN SOD 5 MG TAB PO SCH (16:00)
[2016-12-14 18:00] VITALS: BP 120/65; PULSE 68; RESP 18; TEMP 91.5; O2SAT 100
[2016-12-15] MEDS: PANTOPRAZOLE SOD 20 MG DELAYED RELEASE TAB PO SCH (05:39)
[2016-12-15] MEDS: FERROUS SULFATE 325 MG (65 MG ELEMENTAL IRON) TAB PO SCH ×2 (05:39→17:14)
[2016-12-15 06:02] VITALS: BP 127/61; PULSE 68; RESP 18; TEMP 97.6; O2SAT 97
[2016-12-15 08:22] LABS: PROTHROMBIN TIME - PATIENT 10.9 SEC (9.8-11.6)
[2016-12-15] MEDS: DIGOXIN 0.125 MG TAB PO SCH (08:57)
[2016-12-15] MEDS: DONEPEZIL HCL 5 MG TAB PO SCH (08:57)
--- NOTE | 2016-12-15 12:53 | HHI.PR ---
Subjective Remarks No new complaints. 5 sutures removed from patients left index finger at bedside with one steri strip applied. Objective Vitals Vital Signs Date Time Temp Pulse Resp B/P Pulse Ox O2 Delivery O2 Flow Rate FiO2 12/15/16 06:02 97.6 68 18 127/61 97 12/14/16 18:00 91.5 68 18 120/65 100 12/14/16 12/14/16 12/15/16 15:00 23:00 07:00 Intake Total 480 ml 1200 ml 0 ml Balance 480 ml 1200 ml 0 ml Intake Oral 480 ml 1200 ml 0 ml # Voids 1 2 Imaging Last Impressions Chest X-Ray 12/09/16 0000 Signed Impressions: Service Date/Time: Friday, December 09, 2016 15:44 - CONCLUSION: 1. Cardiomegaly and COPD changes. No acute abnormality. Sarbjit Christiansen MD Brain MRI 12/09/16 0000 Signed Impressions: Service Date/Time: Friday, December 09, 2016 16:22 - CONCLUSION: 1. Mild microvascular ischemic demyelinative changes. 2. No acute intracranial abnormality identified. Sarbjit Christiansen MD Abdomen X-Ray 12/09/16 0000 Signed Impressions: Service Date/Time: Friday, December 09, 2016 15:45 - CONCLUSION: 1. No metallic radiopaque foreign bodies. Tom Estrella MD Head CT 12/06/16 0000 Signed Impressions: Service Date/Time: Tuesday, December 06, 2016 20:04 - CONCLUSION: 1. No acute findings. Mild white matter ischemic changes. Cristian Riggs MD Objective Remarks General: NAD, Alert and oriented to self and place Ext: Left index finger laceration with [address], no erythema or drainage noted, sutures removed at bedside. One area of skin separation and steri strip applied. A/P Problem List: (1) Altered mental status Status: Acute Plan: - unmasked dementia - TSH, free T4, b12, rpr --> WNL - MRI brain (12/09/16) --> NO acute findings - trial of Aricept 5mg Daily - Pt cannot return to living independently upon discharge (2) Adjustment disorder Status: Acute Plan: - mgmt per Psychiatry (3) Atrial fibrillation Status: Chronic Plan: - stable - digoxin - Coumadin resumed on 6/28 - INR 1.0 (12/15) - repeat INR in AM (4) HTN (hypertension) Status: Chronic Plan: - Stable off lisinopril - observe (5) OA (osteoarthritis) Status: Chronic Plan: - mobic - prn percocet (6) Finger laceration Status: Acute Plan: - Pt sustained a previous finger laceration prior to this admission which was sutured as an outpt. - Pts sutures were removed at bedside. - One small area where wound edges are not completely approximated and steri strip was applied. - Wound culture from 12/13 grew out Enterobacter and Serratia. - Apply Triple Antibiotic twice daily for the next 5 days. Assessment and Plan Patient examined. Assessment and plan formulated with Salma Schofield PA-C. I agree with the above. left index finger. had 5 sutures placed at out urgent care center over 10 days ago. currently no drainage and no streaking erythema. wound cx noted. topical abx ordered and sutures removed and steristrips placed. wound had one area where skin not approximated adjacent to suture location.. ok to d/c and f/u pcp. Problem Qualifiers (1) Adjustment disorder: Qualified Code: F43.20 - Adjustment disorder, unspecified type (2) Atrial fibrillation: Qualified Code: I48.2 - Chronic atrial fibrillation (3) HTN (hypertension): Qualified Code: I10 - Essential hypertension (4) OA (osteoarthritis): Qualified Code: M19.90 - Osteoarthritis, unspecified osteoarthritis type, unspecified site Salma Schofield Dec 15, 2016 12:53 Francisco J Santos MD Dec 15, 2016 13:01
[2016-12-15] MEDS: NEOMYCIN/POLYMYXIN/BACITRACIN OINT 15 GM TUBE TOPICAL SCH ×2 (13:00→21:08)
[2016-12-15] MEDS: WARFARIN SOD 5 MG TAB PO SCH (17:14)
[2016-12-15 20:47] VITALS: BP 133/79; PULSE 66; RESP 18; TEMP 97.8; O2SAT 97
[2016-12-16 04:38] VITALS: BP 136/91; PULSE 64; RESP 18; TEMP 96.4; O2SAT 100
[2016-12-16] MEDS: PANTOPRAZOLE SOD 20 MG DELAYED RELEASE TAB PO SCH (05:45)
[2016-12-16] MEDS: FERROUS SULFATE 325 MG (65 MG ELEMENTAL IRON) TAB PO SCH ×2 (05:45→16:00)
[2016-12-16 06:04] VITALS: BP 136/91; PULSE 64; RESP 18; TEMP 96.4; O2SAT 100
[2016-12-16] MEDS: NEOMYCIN/POLYMYXIN/BACITRACIN OINT 15 GM TUBE TOPICAL SCH (08:34)
[2016-12-16] MEDS: DIGOXIN 0.125 MG TAB PO SCH (08:34)
[2016-12-16] MEDS: DONEPEZIL HCL 5 MG TAB PO SCH (08:34)
[2016-12-16] MEDS ORDERED: COUM2.5T PO (14:27)
[2016-12-16] MEDS ORDERED: DIGO0.12 PO (14:27)
[2016-12-16] MEDS ORDERED: COUM5TAB PO (14:27)
[2016-12-16] MEDS ORDERED: TRIPOIN TOPICAL (14:27)
[2016-12-16] MEDS ORDERED: ARIC5TAB2 PO (14:27)
[2016-12-16] MEDS: WARFARIN SOD 5 MG TAB PO SCH (16:00)
[2016-12-16 17:50] VITALS: BP 141/83; PULSE 70; RESP 16; TEMP 98.2; O2SAT 99
--- NOTE | 2016-12-19 08:58 | MD ---
cc: CARLTON MELCHOR M.D. ADMISSION DATE: 12/07/2016 DISCHARGE DATE: 12/16/2016 ADMISSION DIAGNOSIS [place] I: Adjustment reaction with mixed emotional features. Dementia. [place] II: No diagnosis. [place] III: History of atrial fibrillation, questionable history of TIA, hypertension. [place] IV: Severity of psychosocial stressors, moderate, i.e., recent of , current living situation, medical issues. [place] V: Current GAF score 40. DISCHARGE DIAGNOSIS [place] I: Adjustment reaction with mixed emotional features. Dementia. [place] II: No diagnosis. [place] III: History of atrial fibrillation, questionable history of TIA, hypertension. Status post laceration to left fifth finger. [place] IV: Severity of psychosocial stressors, moderate, i.e., recent of , current living situation, medical issues. [place] V: Current GAF score 60. BRIEF HISTORY This 76-year-old white male was brought to the emergency room of this hospital under the [facility] Act initiated by a physician affiliated with urgent care center because of increasing "confusion". He reportedly went there due to laceration on his left fifth finger and during the course of the examination he was observed to be "confused". Urgent care physician contacted his primary care physician, Dr. Johnston, who indicated that this was not his baseline and as such, the urgent care physician initiated the [employer] Act. Please refer to my initial evaluation for details. LAB WORKUP CBC with differential essentially unremarkable except RBC 3.9 and hemoglobin 11.4, hematocrit 34.2. Sed rate normal. Vitamin B12 and folate levels normal. T4, TSH normal. Liver profile normal. Lipid profile also normal. Urine drug screen negative. Blood alcohol level less than 3. Salicylates and acetaminophen levels normal. CELE negative. RPR nonreactive. PT and INR were checked on different dates. PT on 12/06/16 was 31.6 and repeated on 12/15 10.9. INR on 12/06 was 2.7 and repeated on 12/15 was 1.0. APTT 45.9. Routine urinalysis unremarkable. CT scan of the head was negative for any acute finding. Mild white matter ischemic changes. Chest x-ray showed cardiomegaly and COPD changes, no acute abnormality. MRI of the brain showed mild microvascular ischemic demyelination changes. No acute intracranial findings. X-ray of the abdomen was negative for any opaque bodies. HOSPITAL COURSE When initially evaluated, Mr. Cummins was somewhat angry and very unhappy about being on the psychiatric unit, questioning the necessity of [employer] Act. He seemed very concerned about his cats and his belongings which according to him he had packed in his truck and was on the way to his daughter. Apparently, his daughter had recently visited him with intention to [place]. However, on the last minute he changed his mind. I had a telephone conversation with her and obtained background information, reviewed diagnosis, treatment approach and discharge plans. I indicated to her that he would require some type of supervision in view of his cognitive deficits and she was somewhat ambivalent and indicated that she will think about it and let us know. Later on the rn social services also contacted her and she indicated that because of her new job she was unable to come and pick him up and supported the patient's request of discharge in the custody of the neighbors with home healthcare. Throughout this hospital stay he was compliant with treatment plan and did not exhibit any aggressive or self-destructive behavior. He was not supportive of placement in assisted living facility. Individual psychotherapy primarily focused on identified psychosocial stressors, specifically the of his . He was able to identify and verbalize the feelings associated with the loss. Throughout this hospital stay he did not exhibit any aggressive or self-destructive behavior, nor did he make any threats of harm to self or others. He attended the treatment team meeting yesterday and was quite receptive to the feedback from the treatment team members, though still very focused on discharge. He was encouraged to discuss his placement needs with his daughter again, which he was able to and according to him was told that she was unable to pick him up at this point but will be able to in the next couple of weeks or so. During this hospital stay he was followed medically by Dr. Marie and was considered medically stable prior to the discharge. So at this time he is being discharged in the custody of his neighbor who also agreed to provide supervision. He is recommended to continue medical followup with his primary care physician and psychiatric followup with a psychiatrist at [facility]. In addition, he will also be monitored by the home health nurse. The home health nurse will coordinate the care with psychiatrist and his primary care physician. MEDICATIONS Discharge medications are: 1. Digoxin 0.125 mg p.o. daily, #15. 2. Aricept 5 mg p.o. daily, #15 one refill. 3. Triple antibiotic ointment apply q.12 hours, to dispense one tube. 4. Coumadin 5 mg Monday, Monday, Monday, , Monday, Monday, #20. 5. Coumadin 2.5 mg p.o. Monday, #20. MD MANUELA Bruno/TLL /2:35 PM /9:00 AM
== END 2016-12-16 19:45 | disposition home or self-care (01) | DRG 882 ==
LOC: NEPC 17:05 → NEDA 12-07 01:42 → H250 12-07 02:44
PROVIDERS: ADMIT Psychiatry & Neurology Psychiatry; ATTEND Psychiatry & Neurology Psychiatry
DX: F43.23 Adjustment disorder with mixed anxiety and depressed mood (principal); I48.2 Chronic atrial fibrillation; G30.9 Alzheimer's disease, unspecified; F02.80 Dementia in other diseases classified elsewhere, unspecified severity, without behavioral disturbance, psychotic disturbance, mood disturbance, and anxiety; I10 Essential (primary) hypertension; M19.90 Unspecified osteoarthritis, unspecified site; S61.211A Laceration without foreign body of left index finger without damage to nail, initial encounter; E78.5 Hyperlipidemia, unspecified; F43.24 Adjustment disorder with disturbance of conduct; G89.29 Other chronic pain; M54.9 Dorsalgia, unspecified; Z79.01 Long term (current) use of anticoagulants; Z86.73 Personal history of transient ischemic attack (TIA), and cerebral infarction without residual deficits
CPT/HCPCS: 70450; 70553; 71010; 74000; 80053; 80061; 80162; 80307; 81001; 82140; 82607; 82746; 83036; 84439; 84443; 85025; 85610; 85652; 85730; 86038; 86592; 87070; 87077; 87186; 87205; 93005; A9579

== ENCOUNTER 2017-05-29 08:12 | Inpatient (IN) | payer MEDICARE ==
[~2017-05-29] VITALS: Ht 188 cm; Wt 79.7 kg
[~2017-05-29 08:12] MED LIST changes: +ARIC5TAB6 PO; -BENA5; +BENA5TAB PO; -COUM5TAB PO; -DIGO.125 PO; +DIGO0.12 PO; -HYDR10TA16 PO; -MULT-65 PO; +OMEP20TA93 PO; +OXYC-432 PO; +WARF-23 PO; -WARF1TAB PO
[2017-05-29 08:30] VITALS: BP 150/81; PULSE 70; RESP 18; TEMP 98.9; O2SAT 99
[2017-05-29 09:46] LABS: BASOPHIL % 0.5 % (0.0-2.0); EOSINOPHIL % 0.4 % (0.0-4.0); HEMATOCRIT 38.4 % (39.0-51.0); HEMO FLAGS DIFF FINAL; LYMPH % 9.5 % (9.0-44.0); LYMPHOCYTE # 0.6 TH/MM3 (1.0-4.8); MEAN CELL VOLUME 85.6 FL (80.0-100.0); MEAN CORPUSCULAR HEMOGLOBIN 28.2 PG (27.0-34.0); MONO % 7.4 % (0.0-8.0); NEUT % 82.2 % (16.0-70.0); PLATELET COUNT 220 TH/MM3 (150-450); RED BLOOD COUNT 4.49 MIL/MM3 (4.50-5.90); RED CELL DISTRIBUTION WIDTH 16.5 % (11.6-17.2); WHITE BLOOD COUNT 6.1 TH/MM3 (4.0-11.0)
[2017-05-29 10:01] LABS: ANION GAP 7 MEQ/L (5-15); BICARBONATE 26.3 MEQ/L (21.0-32.0); BLOOD UREA NITROGEN 11 MG/DL (7-18); CHLORIDE 105 MEQ/L (98-107); GLOMERULAR FILTRATION RATE 93 ML/MIN (>89); POTASSIUM 4.3 MEQ/L (3.5-5.1); SODIUM (NA) 138 MEQ/L (136-145)
[2017-05-29 10:05] LABS: ALCOHOL LESS THAN 3 MG/DL (0-5)
[2017-05-29 10:32] LABS: BLOOD, URINE NEG (NEG); GLUCOSE,URINE NEG (NEG); KETONE, URINE NEG (NEG); NITRITE,URINE NEG (NEG); URINE COLOR YELLOW (YELLW/STRAW)
[2017-05-29 10:33] LABS: COMMENT (UR) CULT NOT INDICATED; CULTURE IF INDICATED CULT NOT INDICATED
--- NOTE | 2017-05-29 10:46 | PD ---
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 They were concern that pt would cause hard without treatment. Pt is AAOx2 and denies any suicidal or homicidal ideations. States he lives with his 2 cats and went to post office to mail something and found out it was not open yet. Said he was upset at the cost of the transaction but does not want to hurt anyone. Denies any fever, chest pain, sob, n/v, abdominal pain, focal weakness or numbness. Said he just wants to go home. As per our record, pt did have psych admission in 11/2016 for adjustment reaction with mixed emotional features and dementia. Pt also with history of afib and HTN. PFSH Past Medical History Atrial Fibrillation: Yes Cancer: No Cardiovascular Problems: No Dementia: Yes Diabetes: No Diminished Hearing: No Endocrine: No GERD: Yes Genitourinary: No Headaches: No Hepatitis: No Hiatal Hernia: No Hypertension: Yes Immune Disorder: No Musculoskeletal: No Neurologic: No Psychiatric: No Respiratory: No Seizures: No Thyroid Disease: No Past Surgical History Abdominal Surgery: Yes (hernia repair) AICD: No Cardiac Surgery: No Ear Surgery: No Endocrine Surgery: No Eye Surgery: No Genitourinary Surgery: No Gynecologic Surgery: No Joint Replacement: No Oral Surgery: No Pacemaker: No Thoracic Surgery: No Other Surgery: Yes Social History Alcohol Use: No Tobacco Use: No Substance Use: No Allergies-Medications (Allergen,Severity, Reaction): Coded Allergies: No Known Allergies (Unverified Allergy, Unknown, 05/29/17) Reported Meds & Prescriptions Reported Meds & Active Scripts Active Aricept (Donepezil HCl) 5 Mg Tablet 5 Mg PO DAILY Digoxin 0.125 Mg Tab 0.125 Mg PO DAILY Reported Omeprazole 20 Mg Tab 20 Mg PO DAILY Digoxin 0.125 Mg Tab 0.125 Mg PO DAILY Oxycodone-Acetaminophen 5-325 mg Tab 2 Tab PO BID PRN Benazepril (Benazepril HCl) 5 Mg Tab 5 Mg PO DAILY Warfarin 5 Mg Tab 5 Mg PO SUTUWETHFRSA Review of Systems Except as stated in HPI: all other systems reviewed are Neg Physical Exam Narrative GENERAL: 76yo M not in distress. SKIN: Focused skin assessment warm/dry. HEAD: Atraumatic. Normocephalic. EYES: Pupils equal and round. No scleral icterus. No injection or drainage. ENT: No nasal bleeding or discharge. Mucous membranes pink and moist. NECK: Trachea midline. No JVD. CARDIOVASCULAR: Regular rate and rhythm. No murmur appreciated. RESPIRATORY: No accessory muscle use. Clear to auscultation. Breath sounds equal bilaterally. GASTROINTESTINAL: Abdomen soft, non-tender, nondistended. MUSCULOSKELETAL: No obvious deformities. No clubbing. No cyanosis. No edema. NEUROLOGICAL: Awake and alert. No focal neurologic deficits. AAOx2. Data Data Last Documented VS Vital Signs Date Time Temp Pulse Resp B/P (MAP) Pulse Ox O2 Delivery O2 Flow Rate FiO2 05/29/17 08:30 98.9 70 18 150/81 (104) 99 Room Air Orders Orders Complete Blood Count With Diff (05/29/17 09:17) Basic Metabolic Panel (Bmp) (05/29/17 09:17) Alcohol (Ethanol) (05/29/17 09:17) Urinalysis - C+S If Indicated (05/29/17 09:17) Drug Screen, Random Urine (05/29/17 09:17) Psych Screen (05/29/17 11:15) Admit Order (Ed Use Only) (05/29/17 12:27) Labs Laboratory Tests Test 05/29/17 09:26 05/29/17 10:00 White Blood Count 6.1 TH/MM3 Red Blood Count 4.49 MIL/MM3 Hemoglobin 12.7 GM/DL Hematocrit 38.4 % Mean Corpuscular Volume 85.6 FL Mean Corpuscular Hemoglobin 28.2 PG Mean Corpuscular Hemoglobin Concent 33.0 % Red Cell Distribution Width 16.5 % Platelet Count 220 TH/MM3 Mean Platelet Volume 7.2 FL Neutrophils (%) (Auto) 82.2 % Lymphocytes (%) (Auto) 9.5 % Monocytes (%) (Auto) 7.4 % Eosinophils (%) (Auto) 0.4 % Basophils (%) (Auto) 0.5 % Neutrophils # (Auto) 5.0 TH/MM3 Lymphocytes # (Auto) 0.6 TH/MM3 Monocytes # (Auto) 0.4 TH/MM3 Eosinophils # (Auto) 0.0 TH/MM3 Basophils # (Auto) 0.0 TH/MM3 CBC Comment DIFF FINAL Differential Comment Blood Urea Nitrogen 11 MG/DL Creatinine 0.81 MG/DL Random Glucose 94 MG/DL Calcium Level 8.6 MG/DL Sodium Level 138 MEQ/L Potassium Level 4.3 MEQ/L Chloride Level 105 MEQ/L Carbon Dioxide Level 26.3 MEQ/L Anion Gap 7 MEQ/L Estimat Glomerular Filtration Rate 93 ML/MIN Ethyl Alcohol Level LESS THAN 3 MG/DL Urine Color YELLOW Urine Turbidity CLEAR Urine pH 7.0 Urine Specific [place] 1.010 Urine Protein NEG mg/dL Urine Glucose (UA) NEG mg/dL Urine Ketones NEG mg/dL Urine Occult Blood NEG Urine Nitrite NEG Urine Bilirubin NEG Urine Urobilinogen LESS THAN 2.0 MG/DL Urine Leukocyte Esterase NEG Urine WBC LESS THAN 1 /hpf Microscopic Urinalysis Comment CULT NOT INDICATED Urine Opiates Screen NEG Urine Barbiturates Screen NEG Urine Amphetamines Screen NEG Urine Benzodiazepines Screen NEG Urine Cocaine Screen NEG Urine Cannabinoids Screen NEG MDM Medical Decision Making Medical Screen Exam Complete: Yes Emergency Medical Condition: Yes Interpretation(s) EKG: Afib at 69bpm. Normal axis. No ST segment elevation or depression. Differential Diagnosis Dementia vs. adjustment disorder Narrative Course 76yo M brought in as duke act because he threatened postal workers and they felt he was unable to take care of himself. Pt denies any complaints. Upon review of records, he was admitted to psych in November and custody was supposedly given to neighbor. Pt has no way of going home and I feel that there is a social issue. Labs reviewed, no leukocytosis. H/H low at 12.7/38.4 but this is his baseline. BMP unremarkable. UA negative. Pt said he takes medication and does not know what medication he takes. He is suppose to be on coumadin so INR was added. INR is supratherapeutic at 4.5. Pt has no complaints. Will hold coumadin. Pt seen by psych and admitted to psych. Diagnosis Primary Impression: Adjustment disorder Qualified Codes: F43.20 - Adjustment disorder, unspecified Additional Impression: Supratherapeutic INR Admitting Information Admitting Physician Requests: Admit Blanche Aguilar DO May 29, 2017 10:46
[2017-05-29] MEDS ORDERED: LORazepam 2 MG/ML VIAL IM PRN (12:30)
[2017-05-29] MEDS ORDERED: ACETAMINOPHEN 325 MG TAB PO PRN (12:30)
[2017-05-29] MEDS ORDERED: oxyCODONE/ACETAMINOPHEN 5 MG/325 MG TAB PO PRN (12:30)
[2017-05-29] MEDS ORDERED: ALUMINUM/MAGNESIUM/SIMETH 30 ML CUP PO PRN (12:30)
[2017-05-29] MEDS ORDERED: MAGNESIUM HYDROXIDE SUSP 30 ML CUP PO PRN (12:30)
[2017-05-29] MEDS ORDERED: LORazepam 1 MG TAB PO PRN (12:30)
--- NOTE | 2017-05-29 12:45 | HHI.HP ---
Provisional Diagnosis Admission Date May 29, 2017 at 12:28 Melvin I. Dementia with behavioral disturbance Certification of Person's Competence To Provide Express and Informed Consent I have personally examined Db Cummins , a person being served at [facility] on, May 29, 2017 12:34. Express and informed consent means consent voluntarily given in writing, by a competent person, after sufficient explanation and disclosure of the subject matter involved to enable the person to make a knowing and willful decision without any element of force, fraud, deceit, duress, or other form of constraint or coercion. This person is 18 years of age or older, is not now known to be incompetent to consent to treatment with a guardian advocate, and does not have a health care surrogate or proxy currently making medical treatment decisions. I have found this person to be one of the following: [] Competent to provide express and informed consent, as defined above, for voluntary admission to this facility and is competent to provide express and informed consent for treatment. He/she has the consistent capacity to make well reasoned, willful, and knowing decisions concerning his or her medical or mental health treatment. The person fully and consistently understands the purpose of the admission for examination/placement and is fully capable of personally exercising all rights assured [place] [X] Incompetent to provide express and informed consent to voluntary admission, and this is incompetent to provide express and informed consent to treatment. The person must be transferred to involuntary status and a petition for a guardian advocate filed with the Circuit Court. [] Refusing to provide express and informed consent to voluntary admission but is competent to provide express and informed consent for treatment. The person must be discharged or transferred to involuntary status. Form shall be completed within 24 hours of a person's arrival at the receiving facility and filed in the clinical record of each person: 1. Admitted on a voluntary basis 2. Permitted to provide express and informed consent to his/her own treatment 3. Allowed to transfer from involuntary to voluntary status 4. Prior to permitting a person to consent to his or her own treatment after having been previously found incompetent to consent to treatment. History of Present Illness Capacity: Lacks Capacity HPI 76-year-old male brought in under a [employer] act for making threats to run over a abatement worker. Patient has dementia and is a poor historian. He indicated he has no children when he has a daughter and grandchild that may live locally. He indicated his 2 months ago, but this is unverified. He is unable to provide a history as to what happened at the post office this morning as he does not reportedly remember. When asked where he lives, he simply states that he lives in a house in [place], with 2 cats. He was unable or unwilling to provide the city or the address. Apparently the patient was seen by law enforcement at the post office after a friend stated the patient's behavior was concerning. According to the officer, Mr. Msisy Crain felt he was in a town in [place], waiting for the post office to open. The patient did not know he was in [place] or what year it is or who the president is. The patient stated he wanted to run over a abatement worker if the post office did not open soon enough. The patient was [employer] acted at 7:25 AM and the officer apparently recognized the post office did not open until 8: 30 AM. Review of Systems Psychiatric: COMPLAINS OF: Confusion Except as stated in HPI: all other systems reviewed are Neg Past Psych History Psychological trauma history Patient was seen here for an adjustment disorder months ago. He has no known psychological trauma. Violence risk - others (6 mos) Moderate to high. Violence risk - self (6 mos) Moderate to high. Substance Abuse History Drugs/Alcohol past 12 months Denied Past Family Social History Coded Allergies: No Known Allergies (Unverified Allergy, Unknown, 05/29/17) Active Scripts Donepezil HCl (Aricept) 5 Mg Tablet, 5 MG PO DAILY for MEMORY, #15 CAP 1 Refill Prov:Justino Sosa MD 12/16/16 Digoxin (Digoxin) 0.125 Mg Tab, 0.125 MG PO DAILY for HEART, #15 TAB Prov:Justino Sosa MD 12/16/16 Reported Medications Omeprazole (Omeprazole) 20 Mg Tab, 20 MG PO DAILY, #30 TAB 0 Refills 12/06/16 Digoxin (Digoxin) 0.125 Mg Tab, 0.125 MG PO DAILY for Regulate Heart Beat, #30 TAB 0 Refills 12/06/16 Oxycodone-Acetaminophen (Oxycodone-Acetaminophen) 5-325 mg Tab, 2 TAB PO BID Y for PAIN SCALE 1 TO 10, TAB 0 Refills 12/06/16 Benazepril (Benazepril) 5 Mg Tab, 5 MG PO DAILY for Blood Pressure Management, # 30 TAB 0 Refills 12/06/16 Warfarin (Warfarin) 5 Mg Tab, 5 MG PO SuTuWeThFrSa for Blood Clot Prevention, # 30 TAB 0 Refills 12/06/16 Current Medications Medications (Trade) Dose Ordered Sig/Radha Route Start Time Stop Time Status Last Admin (Ativan) 1 mg Q6H PRN PO 05/29/17 12:30 UNV (Ativan Inj) 1 mg Q6H PRN IM 05/29/17 12:30 UNV (Tylenol) 650 mg Q4H PRN PO 05/29/17 12:30 UNV (Milk Of Magnesia Liq) 30 ml DAILY PRN PO 05/29/17 12:30 UNV (Mag-Al Plus Susp Liq) 30 ml Q6H PRN PO 05/29/17 12:30 UNV (Prinivil) 5 mg DAILY PO 05/30/17 09:00 UNV (Lanoxin) 0.125 mg DAILY PO 05/30/17 09:00 UNV (Aricept) 5 mg DAILY PO 05/30/17 09:00 UNV (Percocet 5-325 Mg) 2 tab BID PRN PO 05/29/17 12:30 UNV (Coumadin) 5 mg SuTuWeThFrSa PO 05/30/17 12:30 UNV Non-Formulary Medication 20 mg DAILY PO 05/30/17 09:00 UNV Family Psych History Unknown. Patient poor historian. Social History Patient reports he lives by himself, with 2 cats. However, this might not be true as his house may be divided up between himself and his daughter. Patient denies a history of alcoholism or substance abuse. He is unemployed and retired. He is unable to work and he has obvious cognitive deficits. Patient's Strengths (min. 2) Verbal and has access to healthcare. Physical Exam GENERAL: SKIN: Warm and dry. HEAD: Normocephalic. EYES: No scleral icterus. No injection or drainage. NECK: Supple, trachea midline. No JVD or lymphadenopathy. CARDIOVASCULAR: Regular rate and rhythm without murmurs, gallops, or rubs. RESPIRATORY: Breath sounds equal bilaterally. No accessory muscle use. GASTROINTESTINAL: Abdomen soft, non-tender, nondistended. MUSCULOSKELETAL: No cyanosis, or edema. BACK: Nontender without obvious deformity. No CVA tenderness. Vital Signs Vital Signs Date Time Temp Pulse Resp B/P (MAP) Pulse Ox O2 Delivery O2 Flow Rate FiO2 05/29/17 08:30 98.9 70 18 150/81 (104) 99 Room Air Lab Results Test 05/29/17 09:26 05/29/17 10:00 White Blood Count 6.1 TH/MM3 Red Blood Count 4.49 MIL/MM3 Hemoglobin 12.7 GM/DL Hematocrit 38.4 % Mean Corpuscular Volume 85.6 FL Mean Corpuscular Hemoglobin 28.2 PG Mean Corpuscular Hemoglobin Concent 33.0 % Red Cell Distribution Width 16.5 % Platelet Count 220 TH/MM3 Mean Platelet Volume 7.2 FL Neutrophils (%) (Auto) 82.2 % Lymphocytes (%) (Auto) 9.5 % Monocytes (%) (Auto) 7.4 % Eosinophils (%) (Auto) 0.4 % Basophils (%) (Auto) 0.5 % Neutrophils # (Auto) 5.0 TH/MM3 Lymphocytes # (Auto) 0.6 TH/MM3 Monocytes # (Auto) 0.4 TH/MM3 Eosinophils # (Auto) 0.0 TH/MM3 Basophils # (Auto) 0.0 TH/MM3 CBC Comment DIFF FINAL Differential Comment Blood Urea Nitrogen 11 MG/DL Creatinine 0.81 MG/DL Random Glucose 94 MG/DL Calcium Level 8.6 MG/DL Sodium Level 138 MEQ/L Potassium Level 4.3 MEQ/L Chloride Level 105 MEQ/L Carbon Dioxide Level 26.3 MEQ/L Anion Gap 7 MEQ/L Estimat Glomerular Filtration Rate 93 ML/MIN Ethyl Alcohol Level LESS THAN 3 MG/DL Urine Color YELLOW Urine Turbidity CLEAR Urine pH 7.0 Urine Specific [place] 1.010 Urine Protein NEG mg/dL Urine Glucose (UA) NEG mg/dL Urine Ketones NEG mg/dL Urine Occult Blood NEG Urine Nitrite NEG Urine Bilirubin NEG Urine Urobilinogen LESS THAN 2.0 MG/DL Urine Leukocyte Esterase NEG Urine WBC LESS THAN 1 /hpf Microscopic Urinalysis Comment CULT NOT INDICATED Urine Opiates Screen NEG Urine Barbiturates Screen NEG Urine Amphetamines Screen NEG Urine Benzodiazepines Screen NEG Urine Cocaine Screen NEG Urine Cannabinoids Screen NEG Mental Status Examination Appearance: Disheveled Consciousness: Alert Orientation: Person Motor Activity: Normal gait Speech: Hesitant Language: Adequate Fund of Knowledge: Inadequate Attention and Concentration: Easily Distracted Memory: Impaired Mood: Irritable Affect: Labile Thought Process & Associations: Other Thought Content: Other Hallucination Type: None Delusion Type: None Suicidal Ideation: No Suicidal Plan: No Suicidal Intention: No Homicidal Ideation: Yes Homicidal Plan: No Homicidal Intention: No Insight: Poor Judgment: Impulsive Assessment & Plan Problem List: (1) Dementia of Alzheimer's type with behavioral disturbance ICD Codes: G30.8 - Other Alzheimer's disease; F02.81 - Dementia in other diseases classified elsewhere with behavioral disturbance Status: Acute (2) Dementia in other diseases classified elsewhere with behavioral disturbance ICD Codes: F02.81 - Dementia in other diseases classified elsewhere with behavioral disturbance Assessment & Plan Estimated LOS: days. Patient not felt to be competent to consent for treatment due to obvious cognitive deficits with memory loss, emotional instability, etc. He is felt to be at high risk for harming others or self due to his confusion and irritability. He does not remember threatening to run over a abatement worker. He does not remember why the military police officer brought him to the hospital. He does not appear to be able to remember where he lives, his medicines, family members, etc. on a consistent basis. For these reasons he is being admitted for further evaluation and treatment. This physician has ordered a CBC and comprehensive metabolic panel to determine if any infectious process or metabolic process is causing or contributing to the patient's confusion and behavioral issues. There is some possible history of a urinary tract infection that may be adversely affecting the patient. This physician has asked for a hospitalist consult as the patient has multiple underlying medical issues. This physician has also ordered a thyroid- stimulating hormone level, vitamin B-12 level and vitamin D level to determine if deficiencies in these areas are causing or contributing to the patient's confusion and behavioral disturbance. Additionally, this physician has ordered an EKG prior to significantly altering the patient's medications. Patient is noted to be on blood thinner, multiple other medicines, which might be adversely affected by adding psychotropic medicines. This physician spoke with the patient's nurse, Senia, regarding his recent behavior. Finally, case management will be involved to assist with further information gathering and disposition planning. Francisco J Weller MD May 29, 2017 12:45
[2017-05-29 13:32] LABS: APTT (PATIENT) 57.2 SEC (24.3-30.1); INTERNATIONAL NORMALIZED RATIO 4.5 RATIO
--- NOTE | 2017-05-29 13:37 | PD.CONS ---
HPI Service [facility] Hospitalists Consult Requested By Dr. Weller Reason for Consult Please evaluate and treat for multiple medical conditions Primary Care Physician Baron Johnston M.D. Diagnoses: History of Present Illness Mr. Cummins is a 76 y/o male with dementia, atrial fibrillation, chronic back pain, hx of lumbar compression fracture, and hyperlipidemia. He was brought to the ER 05/29/17 by police department under a [employer] act. Patient was at post office this AM and stated that "wanted to run over central office worker if post office didn't open soon". Pt is AAOx2, patient is able to provide his name and that he is in [place]. Patient reports, "It was just a joke." Patient wants to go home. Denies any fever, chest pain, sob, n/v, abdominal pain, focal weakness or numbness. Patient also had a psych admission in 11/2016 for adjustment reaction with mixed emotional features and dementia. We have been consulted to assist with medical management. Review of Systems ROS Limitations: Poor Historian Constitutional: DENIES: Fatigue, Fever, Chills Eyes: DENIES: Blurred vision, Diplopia, Vision loss Respiratory: DENIES: Cough, Sputum production, Shortness of breath Cardiovascular: DENIES: Chest pain, Palpitations, Lower Extremity Edema Gastrointestinal: DENIES: Abdominal pain, Constipation, Diarrhea Neurologic: DENIES: Headache, Localized weakness, Paresthesias Psychiatric: COMPLAINS OF: Confusion, DENIES: Anxiety, Depression 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 Iron deficiency Past Surgical History Cataract surgery Foot surgery Rotator cuff repair Reported Medications Aricept (Donepezil HCl) 5 Mg Tablet 5 Mg PO DAILY Digoxin 0.125 Mg Tab 0.125 Mg PO DAILY Omeprazole 20 Mg Tab 20 Mg PO DAILY Digoxin 0.125 Mg Tab 0.125 Mg PO DAILY Oxycodone-Acetaminophen 5-325 mg Tab 2 Tab PO BID PRN Benazepril (Benazepril HCl) 5 Mg Tab 5 Mg PO DAILY Warfarin 5 Mg Tab 5 Mg PO SUTUWETHFRSA Allergies: Coded Allergies: No Known Allergies (Unverified Allergy, Unknown, 05/29/17) Active Ordered Medications Current Medications Medications (Trade) Dose Ordered Sig/Radha Route Start Time Stop Time Status Last Admin (Ativan) 1 mg Q6H PRN PO 05/29/17 12:30 UNV (Ativan Inj) 1 mg Q6H PRN IM 05/29/17 12:30 UNV (Tylenol) 650 mg Q4H PRN PO 05/29/17 12:30 UNV (Milk Of Magnesia Liq) 30 ml DAILY PRN PO 05/29/17 12:30 UNV (Mag-Al Plus Susp Liq) 30 ml Q6H PRN PO 05/29/17 12:30 UNV (Prinivil) 5 mg DAILY PO 05/30/17 09:00 UNV (Lanoxin) 0.125 mg DAILY PO 05/30/17 09:00 UNV (Aricept) 5 mg DAILY PO 05/30/17 09:00 UNV (Percocet 5-325 Mg) 2 tab BID PRN PO 05/29/17 12:30 UNV (Coumadin) 5 mg SuTuWeThFrSa PO 05/30/17 12:30 UNV Non-Formulary Medication 20 mg DAILY PO 05/30/17 09:00 UNV Family History Noncontributory Social History No reported alcohol, tobacco or illicit drug use 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 SKIN: few scattered healing scabs BUE HEENT: Atraumatic. Normocephalic. No temporal or scalp tenderness. No scleral icterus. Airway patent. NECK: Trachea midline, supple, nontender. CARDIO: Irregularly irregular. RESP: CTA bilaterally. No wheezes, rales, or rhonchi. ABD: +BS, soft, non-tender, nondistended. EXT: Extremities without clubbing, cyanosis, or edema. NEURO: Awake and alert, confused. Motor and sensory grossly within normal limits. Normal speech. Laboratory Laboratory Tests Test 05/29/17 09:26 05/29/17 10:00 05/29/17 13:07 White Blood Count 6.1 Red Blood Count 4.49 Hemoglobin 12.7 Hematocrit 38.4 Mean Corpuscular Volume 85.6 Mean Corpuscular Hemoglobin 28.2 Mean Corpuscular Hemoglobin Concent 33.0 Red Cell Distribution Width 16.5 Platelet Count 220 Mean Platelet Volume 7.2 Neutrophils (%) (Auto) 82.2 Lymphocytes (%) (Auto) 9.5 Monocytes (%) (Auto) 7.4 Eosinophils (%) (Auto) 0.4 Basophils (%) (Auto) 0.5 Neutrophils # (Auto) 5.0 Lymphocytes # (Auto) 0.6 Monocytes # (Auto) 0.4 Eosinophils # (Auto) 0.0 Basophils # (Auto) 0.0 CBC Comment DIFF FINAL Differential Comment Blood Urea Nitrogen 11 Creatinine 0.81 Random Glucose 94 Calcium Level 8.6 Sodium Level 138 Potassium Level 4.3 Chloride Level 105 Carbon Dioxide Level 26.3 Anion Gap 7 Estimat Glomerular Filtration Rate 93 Ethyl Alcohol Level LESS THAN 3 Urine Color YELLOW Urine Turbidity CLEAR Urine pH 7.0 Urine Specific [place] 1.010 Urine Protein NEG Urine Glucose (UA) NEG Urine Ketones NEG Urine Occult Blood NEG Urine Nitrite NEG Urine Bilirubin NEG Urine Urobilinogen LESS THAN 2.0 Urine Leukocyte Esterase NEG Urine WBC LESS THAN 1 Microscopic Urinalysis Comment CULT NOT INDICATED Urine Opiates Screen NEG Urine Barbiturates Screen NEG Urine Amphetamines Screen NEG Urine Benzodiazepines Screen NEG Urine Cocaine Screen NEG Urine Cannabinoids Screen NEG Result Diagram: 05/29/1792505/29/17925 Assessment and Plan Assessment and Plan (1) Altered mental status Status: Acute Plan: - dementia, continue home Aricept - further management per psych team (2) Adjustment disorder Status: Acute Plan: - mgmt per Psychiatry (3) Atrial fibrillation- currently rate controlled Status: Chronic Plan: - stable - digoxin. Patient was in [facility] 02/2017 had bradycardia and digoxin was held. will DC dig and monitor HR - check dig level - INR 4.5 (05/29/17) - hold Coumadin today - pharmacy consulted - repeat INR in AM (4) HTN (hypertension) Status: Chronic Plan: - stable lisinopril (5) OA (osteoarthritis) Status: Chronic Plan: (6) H/O porphyria Status: Acute Yanet Ellison May 29, 2017 13:37
--- NOTE | 2017-05-29 14:04 | PD.PSY.CON ---
Provisional Diagnosis Admission Date May 29, 2017 at 12:28 [place]. Dementia with behavioral disturbance History of Present Illness Service Psychiatry Consult Requested By Dr. Weller Reason for Consult Second opinion Primary Care Physician Baron Johnston M.D. HPI 76-year-old male brought in under a [facility] act for making threats to run over a mining support worker. Patient has dementia and is a poor historian. He indicated he has no children when he has a daughter and grandchild that may live locally. He indicated his 2 months ago, but this is unverified. He is unable to provide a history as to what happened at the post office this morning as he does not reportedly remember. When asked where he lives, he simply states that he lives in a house in [place], with 2 cats. He was unable or unwilling to provide the city or the address. Apparently the patient was seen by law enforcement at the post office after a friend stated the patient's behavior was concerning. According to the officer, Mr. Missy Crain felt he was in a town in [place], waiting for the post office to open. The patient did not know he was in [place] or what year it is or who the president is. The patient stated he wanted to run over a mining support worker if the post office did not open soon enough. The patient was [facility] acted at 7:25 AM and the officer apparently recognized the post office did not open until 8: 30 AM. The patient is a 76 years old man, domiciled alone, , supported by group home benefits, he denies previous psychiatric history, he denies previous medical history, denies the use of illicit drugs and alcohol, he was brought to the hospital on the [facility] act ago she was found in the postal service confused is oriented. Consulted to me for second opinion. On psychiatric evaluation the patient is resistant, oppositional, very irritable. Patient is requesting to be discharged because he has to go back home to take care of his 2 cats. Patient says that his 2 months ago. Patient doesn't know the reason is in the hospital. He knows that he is in the hospital, but he doesn't know the town in which lives, he knows is May 2017. He denies suicidal and homicidal ideation, he denies visual and auditory hallucinations. Patient is verbally hostile, at times loud, but redirectable. Review of Systems Constitutional: DENIES: Diaphoretic episodes, Fatigue, Fever, Weight gain, Weight loss, Chills, Dizziness, Change in appetite, Night Sweats Endocrine: DENIES: Heat/cold intolerance, Polydipsia, Polyuria, Polyphagia Eyes: DENIES: Blurred vision, Diplopia, Eye inflammation, Eye pain, Vision loss , Photosensitivity, Double Vision Respiratory: DENIES: Apneas, Cough, Snoring, Wheezing, Hemoptysis, Sputum production, Shortness of breath Cardiovascular: DENIES: Chest pain, Palpitations, Syncope, Dyspnea on Exertion , PND, Lower Extremity Edema, Orthopnea, Claudication Gastrointestinal: DENIES: Abdominal pain, Black stools, Bloody stools, Constipation, Diarrhea, Nausea, Vomiting, Difficulty Swallowing, Anorexia Genitourinary: DENIES: Sexual dysfunction, Urinary frequency, Urinary incontinence, Urgency, Hematuria, Dysuria, Nocturia, Penile Discharge, Testicular Pain, Testicular Swelling Musculoskeletal: DENIES: Joint pain, Muscle aches, Stiffness, Joint Swelling, Back pain, Neck pain Hematologic/lymphatic: DENIES: Bruising, Lymphadenopathy Immunologic/allergic: DENIES: Eczema, Urticaria Neurologic: DENIES: Abnormal gait, Headache, Localized weakness, Paresthesias, Seizures, Speech Problems, Tremor, Poor Balance Psychiatric: COMPLAINS OF: Confusion, Agitation, DENIES: Anxiety, Mood changes , Depression, Hallucinations, Suicidal Ideation, Homicidal Ideation, Delusions Past Family Social History Coded Allergies: No Known Allergies (Unverified Allergy, Unknown, 05/29/17) Active Scripts Donepezil HCl (Aricept) 5 Mg Tablet, 5 MG PO DAILY for MEMORY, #15 CAP 1 Refill Prov:Justino Sosa MD 12/16/16 Digoxin (Digoxin) 0.125 Mg Tab, 0.125 MG PO DAILY for HEART, #15 TAB Prov:Justino Sosa MD 12/16/16 Reported Medications Omeprazole (Omeprazole) 20 Mg Tab, 20 MG PO DAILY, #30 TAB 0 Refills 12/06/16 Digoxin (Digoxin) 0.125 Mg Tab, 0.125 MG PO DAILY for Regulate Heart Beat, #30 TAB 0 Refills 12/06/16 Oxycodone-Acetaminophen (Oxycodone-Acetaminophen) 5-325 mg Tab, 2 TAB PO BID Y for PAIN SCALE 1 TO 10, TAB 0 Refills 12/06/16 Benazepril (Benazepril) 5 Mg Tab, 5 MG PO DAILY for Blood Pressure Management, # 30 TAB 0 Refills 12/06/16 Warfarin (Warfarin) 5 Mg Tab, 5 MG PO SuTuWeThFrSa for Blood Clot Prevention, # 30 TAB 0 Refills 12/06/16 Current Medications Medications (Trade) Dose Ordered Sig/Radha Route Start Time Stop Time Status Last Admin (Ativan) 1 mg Q6H PRN PO 05/29/17 12:30 UNV (Ativan Inj) 1 mg Q6H PRN IM 05/29/17 12:30 UNV (Tylenol) 650 mg Q4H PRN PO 05/29/17 12:30 UNV (Milk Of Magnesia Liq) 30 ml DAILY PRN PO 05/29/17 12:30 UNV (Mag-Al Plus Susp Liq) 30 ml Q6H PRN PO 05/29/17 12:30 UNV (Prinivil) 5 mg DAILY PO 05/30/17 09:00 UNV (Lanoxin) 0.125 mg DAILY PO 05/30/17 09:00 UNV (Aricept) 5 mg DAILY PO 05/30/17 09:00 UNV (Percocet 5-325 Mg) 2 tab BID PRN PO 05/29/17 12:30 UNV (Coumadin) 5 mg SuTuWeThFrSa PO 05/30/17 12:30 UNV Non-Formulary Medication 20 mg DAILY PO 05/30/17 09:00 UNV Family Psych History The patient denies family psychiatric history Social History Was born and raised in [facility], he is , he lives alone, Patient's Strengths (min. 2) Verbal and has access to healthcare. Physical Exam Vital Signs Vital Signs Date Time Temp Pulse Resp B/P (MAP) Pulse Ox O2 Delivery O2 Flow Rate FiO2 05/29/17 08:30 98.9 70 18 150/81 (104) 99 Room Air Lab Results Test 05/29/17 09:26 05/29/17 10:00 05/29/17 13:07 White Blood Count 6.1 TH/MM3 Red Blood Count 4.49 MIL/MM3 Hemoglobin 12.7 GM/DL Hematocrit 38.4 % Mean Corpuscular Volume 85.6 FL Mean Corpuscular Hemoglobin 28.2 PG Mean Corpuscular Hemoglobin Concent 33.0 % Red Cell Distribution Width 16.5 % Platelet Count 220 TH/MM3 Mean Platelet Volume 7.2 FL Neutrophils (%) (Auto) 82.2 % Lymphocytes (%) (Auto) 9.5 % Monocytes (%) (Auto) 7.4 % Eosinophils (%) (Auto) 0.4 % Basophils (%) (Auto) 0.5 % Neutrophils # (Auto) 5.0 TH/MM3 Lymphocytes # (Auto) 0.6 TH/MM3 Monocytes # (Auto) 0.4 TH/MM3 Eosinophils # (Auto) 0.0 TH/MM3 Basophils # (Auto) 0.0 TH/MM3 CBC Comment DIFF FINAL Differential Comment Blood Urea Nitrogen 11 MG/DL Creatinine 0.81 MG/DL Random Glucose 94 MG/DL Calcium Level 8.6 MG/DL Sodium Level 138 MEQ/L Potassium Level 4.3 MEQ/L Chloride Level 105 MEQ/L Carbon Dioxide Level 26.3 MEQ/L Anion Gap 7 MEQ/L Estimat Glomerular Filtration Rate 93 ML/MIN Ethyl Alcohol Level LESS THAN 3 MG/DL Urine Color YELLOW Urine Turbidity CLEAR Urine pH 7.0 Urine Specific [place] 1.010 Urine Protein NEG mg/dL Urine Glucose (UA) NEG mg/dL Urine Ketones NEG mg/dL Urine Occult Blood NEG Urine Nitrite NEG Urine Bilirubin NEG Urine Urobilinogen LESS THAN 2.0 MG/DL Urine Leukocyte Esterase NEG Urine WBC LESS THAN 1 /hpf Microscopic Urinalysis Comment CULT NOT INDICATED Urine Opiates Screen NEG Urine Barbiturates Screen NEG Urine Amphetamines Screen NEG Urine Benzodiazepines Screen NEG Urine Cocaine Screen NEG Urine Cannabinoids Screen NEG Prothrombin Time 45.0 SEC Prothromb Time International Ratio 4.5 RATIO Activated Partial Thromboplast Time 57.2 SEC Mental Status Examination Appearance: Disheveled Consciousness: Alert Orientation: Person Motor Activity: Normal gait Speech: Hesitant Language: Adequate Fund of Knowledge: Inadequate Attention and Concentration: Easily Distracted Memory: Impaired Mood: Irritable Affect: Labile Thought Process & Associations: Other Thought Content: Other Hallucination Type: None Delusion Type: None Suicidal Ideation: No Suicidal Plan: No Suicidal Intention: No Homicidal Ideation: Yes Homicidal Plan: No Homicidal Intention: No Insight: Poor Judgment: Impulsive Assessment & Plan Problem List: (1) Dementia of Alzheimer's type with behavioral disturbance ICD Codes: G30.8 - Other Alzheimer's disease; F02.81 - Dementia in other diseases classified elsewhere with behavioral disturbance Status: Acute (2) Dementia in other diseases classified elsewhere with behavioral disturbance ICD Codes: F02.81 - Dementia in other diseases classified elsewhere with behavioral disturbance Assessment & Plan: I have seen and examined this patient, reviewed documentation, I completely agree with Dr. Weller's assessment and plan. Assessment & Plan Estimated LOS: days Jasiel Zamarripa MD May 29, 2017 14:04
[2017-05-29] MEDS: PANTOPRAZOLE SOD 20 MG DELAYED RELEASE TAB PO SCH (14:15)
[2017-05-29 14:44] VITALS: BP 167/97; PULSE 76; RESP 16; TEMP 98
[2017-05-30 05:24] VITALS: BP 149/77; PULSE 61; RESP 16; TEMP 97.9; O2SAT 100
[2017-05-30] MEDS ORDERED: DIGOXIN 0.125 MG TAB PO SCH (09:00)
[2017-05-30] MEDS: PANTOPRAZOLE SOD 20 MG DELAYED RELEASE TAB PO SCH (10:12)
[2017-05-30] MEDS: DONEPEZIL HCL 5 MG TAB PO SCH ×2 (10:12→20:37)
[2017-05-30] MEDS: LISINOPRIL 5 MG TAB PO SCH (10:12)
--- NOTE | 2017-05-30 10:13 | HHI.PYPN ---
Subjective Remarks Patient was seen today for psychiatric reevaluation, chart was reviewed, hospitalist input was reviewed, appreciated. Case discussed with nursing charge. On psychiatric evaluation patient is found in his bed, he is calm, cooperative, a little bit irritable and verbally hostile, but redirectable. The patient reports that he doesn't know the reason he is here. Patient doesn' t know where he is or the date. He says that he has been living with a girlfriend "[place] [address] Patient is unable to elaborate about recent episode of hostility in the post office. Patient reports angry mood, he denies suicidal and homicidal ideation, he denies visual and auditory hallucinations. As per nursing report, the patient has been episodically agitated, demanding, last night did not sleep more than 2 hours. No signs and labs were reviewed, they're unremarkable. Review of Systems Psychiatric: COMPLAINS OF: Agitation Except as stated in HPI: all other systems reviewed are Neg Mental Status Examination Appearance: Disheveled Consciousness: Alert Orientation: Person Motor Activity: Normal gait Speech: Hesitant Language: Adequate Fund of Knowledge: Inadequate Attention and Concentration: Easily Distracted Memory: Impaired Mood: Irritable Affect: Labile Thought Process & Associations: Other Thought Content: Other Hallucination Type: None Delusion Type: None Suicidal Ideation: No Suicidal Plan: No Suicidal Intention: No Homicidal Ideation: Yes Homicidal Plan: No Homicidal Intention: No Insight: Poor Judgment: Impulsive Results Labs Test 05/29/17 13:07 05/29/17 15:03 Prothrombin Time 45.0 SEC Prothromb Time International Ratio 4.5 RATIO Activated Partial Thromboplast Time 57.2 SEC Digoxin Level 0.3 NG/ML Vitals/IOs Vital Signs Date Time Temp Pulse Resp B/P (MAP) Pulse Ox O2 Delivery O2 Flow Rate FiO2 05/30/17 05:24 97.9 61 16 149/77 (101) 100 05/29/17 08:30 Room Air Intake and Output 05/30/17 05/30/17 05/31/17 08:00 16:00 00:00 Intake Total 0 ml Balance 0 ml Assessment & Plan Problem List: (1) Dementia of Alzheimer's type with behavioral disturbance ICD Codes: G30.8 - Other Alzheimer's disease; F02.81 - Dementia in other diseases classified elsewhere with behavioral disturbance Status: Acute (2) Dementia in other diseases classified elsewhere with behavioral disturbance ICD Codes: F02.81 - Dementia in other diseases classified elsewhere with behavioral disturbance Assessment & Plan: Patient continues to be episodically agitated, hostile, very irritable and sleeping poorly at night. Start Seroquel 25 mg twice a day to help with her dysregulation. add Aricept 5 mg daily for dementia. QTc interval is 419. Labs and vital signs reviewed. Assessment & Plan Estimated LOS: days Justification for Cont. Inpt. Patient has an elevated risk to decompensate at a lower level of care. Jasiel Zamarripa MD May 30, 2017 10:13
[2017-05-30] MEDS: QUEtiapine FUMARATE 25 MG TAB PO SCH ×2 (11:25→20:37)
--- NOTE | 2017-05-30 11:46 | EKG ---
Date Performed: 05/29/2017 Time Performed: 12:50:35 PTAGE: 76 years EKG: ATRIAL FIBRILLATION ABNORMAL RHYTHM ECG Compared to prior tracing no significant change PREVIOUS TRACING : 04/16/2017 12.16 DOCTOR: Brian Borjas Interpretating Date/Time 05/30/2017 11:46:10
[2017-05-30 12:20] LABS: AUTOMATED NEUTROPHIL # 3.8 TH/MM3 (1.8-7.7); BASOPHIL % 0.8 % (0.0-2.0); EOSINOPHIL % 0.4 % (0.0-4.0); HEMATOCRIT 40.8 % (39.0-51.0); HEMO FLAGS DIFF FINAL; LYMPH % 15.2 % (9.0-44.0); LYMPHOCYTE # 0.8 TH/MM3 (1.0-4.8); MEAN CELL VOLUME 85.7 FL (80.0-100.0); MEAN CORPUSCULAR HEMOGLOBIN 28.2 PG (27.0-34.0); MEAN CORPUSCULAR HGB CONC 32.9 % (32.0-36.0); MONO % 7.8 % (0.0-8.0); NEUT % 75.8 % (16.0-70.0); PLATELET COUNT 221 TH/MM3 (150-450); RED BLOOD COUNT 4.77 MIL/MM3 (4.50-5.90); RED CELL DISTRIBUTION WIDTH 16.2 % (11.6-17.2); WHITE BLOOD COUNT 5.1 TH/MM3 (4.0-11.0)
[2017-05-30 12:26] LABS: INTERNATIONAL NORMALIZED RATIO 2.2 RATIO; PROTHROMBIN TIME - PATIENT 22.3 SEC (9.8-11.6)
[2017-05-30] MEDS ORDERED: WARFARIN SOD 5 MG TAB PO SCH (12:30)
[2017-05-30 12:49] LABS: ALT (GPT) 32 U/L (12-78); ANION GAP 6 MEQ/L (5-15); AST (GOT) 25 U/L (15-37); BICARBONATE 27.8 MEQ/L (21.0-32.0); BLOOD UREA NITROGEN 15 MG/DL (7-18); CHLORIDE 104 MEQ/L (98-107); GLOMERULAR FILTRATION RATE 95 ML/MIN (>89); SODIUM (NA) 138 MEQ/L (136-145)
[2017-05-30 13:14] LABS: ALKALINE PHOSPHATASE 95 U/L (45-117); FREE T4 0.89 NG/DL (0.76-1.46); HDL CHOLESTEROL 80.1 MG/DL (40.0-60.0); LDL CHOLESTEROL 101 MG/DL (0-99); TOTAL BILIRUBIN ADULT 0.7 MG/DL (0.2-1.0)
[2017-05-30 13:32] LABS: HEMOGLOBIN A1a 1.2 %; HEMOGLOBIN A1b 1.8 %; HEMOGLOBIN Ao 84.7 %; HEMOGLOBIN LA1C 2.3 %; HEMOGLOBIN P3 3.9 %
[2017-05-30] MEDS: WARFARIN SOD 5 MG TAB PO SCH (16:34)
[2017-05-30 17:55] VITALS: BP 145/92; PULSE 98; RESP 16; TEMP 99; O2SAT 99
[2017-05-31 05:52] VITALS: BP 117/73; PULSE 60; RESP 17; TEMP 97.9; O2SAT 96
[2017-05-31] MEDS: LISINOPRIL 5 MG TAB PO SCH (08:15)
[2017-05-31] MEDS: PANTOPRAZOLE SOD 20 MG DELAYED RELEASE TAB PO SCH (08:15)
[2017-05-31] MEDS: QUEtiapine FUMARATE 25 MG TAB PO SCH ×3 (08:15→20:52)
[2017-05-31] MEDS: DONEPEZIL HCL 5 MG TAB PO SCH ×2 (08:17→20:54)
--- NOTE | 2017-05-31 11:15 | HHI.PYPN ---
Subjective Remarks The patient was seen today for psychiatric reevaluation, chart review, case discussed with nursing charge. Patient is irritable, verbally hostile, but redirectable. The patient says that he is upset because he wants to go to live with his girlfriend. He says that his girlfriend lives in another state, however he doesn't know the name of his girlfriend, he doesn't know where his girlfriend lives. When I asked the patient if he knows where he is, he answers "I know that I am not close". As I am interviewing the patient he is eating his breakfast, he says that he enjoys the food, "but I don't really know if this food is poisoned". He says "get me out of longterm, I had not committed any crime". Patient has been compliant with his medications, no significant side effects reported. As per nursing charge, the patient has been episodically hostile and agitated, but redirectable. Mental Status Examination Appearance: Disheveled Consciousness: Alert Orientation: Person Motor Activity: Normal gait Speech: Hesitant Language: Adequate Fund of Knowledge: Inadequate Attention and Concentration: Easily Distracted Memory: Impaired Mood: Irritable Affect: Labile Thought Process & Associations: Other Thought Content: Other Hallucination Type: None Delusion Type: None Suicidal Ideation: No Suicidal Plan: No Suicidal Intention: No Homicidal Ideation: Yes Homicidal Plan: No Homicidal Intention: No Insight: Poor Judgment: Impulsive Results Labs Test 05/30/17 11:10 Prothrombin Time 22.3 SEC Prothromb Time International Ratio 2.2 RATIO Vitals/IOs Vital Signs Date Time Temp Pulse Resp B/P (MAP) Pulse Ox O2 Delivery O2 Flow Rate FiO2 05/31/17 05:52 97.9 60 17 117/73 (88) 96 05/29/17 08:30 Room Air Intake and Output 05/31/17 05/31/17 06/01/17 08:00 16:00 00:00 Intake Total 480 ml Balance 480 ml Assessment & Plan Problem List: (1) Dementia of Alzheimer's type with behavioral disturbance ICD Codes: G30.8 - Other Alzheimer's disease; F02.81 - Dementia in other diseases classified elsewhere with behavioral disturbance Status: Acute Assessment & Plan: Patient continues to be episodically agitated, hostile, very irritable. We will continue Seroquel 25 mg twice a day, increase Aricept to 10 mg daily and will add Namenda 10 mg daily. (2) Dementia in other diseases classified elsewhere with behavioral disturbance ICD Codes: F02.81 - Dementia in other diseases classified elsewhere with behavioral disturbance Assessment & Plan Estimated LOS: days Justification for Cont. Inpt. Patient needs to continue psychiatric hospitalization for stabilization, will meet with clinical social worker to start discharge planning. Jasiel Zamarripa MD May 31, 2017 11:15
[2017-05-31 13:16] LABS: INTERNATIONAL NORMALIZED RATIO 1.5 RATIO; PROTHROMBIN TIME - PATIENT 15.4 SEC (9.8-11.6)
[2017-05-31] MEDS: WARFARIN SOD 5 MG TAB PO SCH ×3 (16:00→21:31)
[2017-05-31 18:00] VITALS: BP 121/72; PULSE 93; RESP 18; TEMP 97.6; O2SAT 98
[2017-06-01 06:17] VITALS: BP 127/86; PULSE 66; RESP 17; TEMP 97.7; O2SAT 96
[2017-06-01] MEDS: MEMANTINE HCL 10 MG TAB PO SCH (07:57)
[2017-06-01] MEDS: LISINOPRIL 5 MG TAB PO SCH (07:57)
[2017-06-01] MEDS: DONEPEZIL HCL 5 MG TAB PO SCH ×2 (07:58→21:01)
[2017-06-01] MEDS: QUEtiapine FUMARATE 25 MG TAB PO SCH ×2 (07:58→21:02)
[2017-06-01] MEDS: PANTOPRAZOLE SOD 20 MG DELAYED RELEASE TAB PO SCH (07:58)
--- NOTE | 2017-06-01 08:23 | HHI.PYPN ---
Subjective Remarks The patient was seen today for psychiatric reevaluation, chart was reviewed, case discussed with nurse in charge Jenniffer, also discussed with social services coordinator Eva. The patient was found in his bed, he was eating his breakfast, calm, superficially cooperative, irritable, the patient is stays that he has been thinking of moving out of "the state, I want to go to [place] with my girlfriend". Patient is unable to stand he is already in [place], and he cannot give any biographical details about his girlfriend including her name. The has been irritable, verbally hostile and agitated especially at nighttime. He has been compliant with his medications, nose and medical side effects reported. He would be presented today and [facility] court for determination of disposition. Review of Systems Except as stated in HPI: all other systems reviewed are Neg Mental Status Examination Appearance: Disheveled Consciousness: Alert Orientation: Person Motor Activity: Normal gait Speech: Hesitant Language: Adequate Fund of Knowledge: Inadequate Attention and Concentration: Easily Distracted Memory: Impaired Mood: Irritable Affect: Labile Thought Process & Associations: Other Thought Content: Other Hallucination Type: None Delusion Type: None Suicidal Ideation: No Suicidal Plan: No Suicidal Intention: No Homicidal Ideation: Yes Homicidal Plan: No Homicidal Intention: No Insight: Poor Judgment: Impulsive Results Labs Test 05/31/17 12:45 06/01/17 07:29 Prothrombin Time 15.4 SEC Prothromb Time International Ratio 1.5 RATIO Vitals/IOs Vital Signs Date Time Temp Pulse Resp B/P (MAP) Pulse Ox O2 Delivery O2 Flow Rate FiO2 06/01/17 06:17 97.7 66 17 127/86 (100) 96 05/29/17 08:30 Room Air Intake and Output 06/01/17 06/01/17 06/02/17 08:00 16:00 00:00 Intake Total 0 ml Balance 0 ml Assessment & Plan Problem List: (1) Dementia of Alzheimer's type with behavioral disturbance ICD Codes: G30.8 - Other Alzheimer's disease; F02.81 - Dementia in other diseases classified elsewhere with behavioral disturbance Status: Acute Assessment & Plan: Discontinue Seroquel during the day, increased Seroquel to 50 mg at bedtime. Brief supportive psychotherapy and motivation provided. Patient will be taken to [facility] court today. (2) Dementia in other diseases classified elsewhere with behavioral disturbance ICD Codes: F02.81 - Dementia in other diseases classified elsewhere with behavioral disturbance Assessment & Plan Estimated LOS: days Justification for Cont. Inpt. The patient needs to continue psychiatric hospitalization for stabilization and safety. Jasiel Zamarripa MD Jun 01, 2017 08:23
[2017-06-01 08:24] LABS: INTERNATIONAL NORMALIZED RATIO 1.4 RATIO; PROTHROMBIN TIME - PATIENT 13.8 SEC (9.8-11.6)
[2017-06-01 18:17] VITALS: BP 118/81; PULSE 80; RESP 17; TEMP 97.5; O2SAT 98
[2017-06-02 06:00] VITALS: BP 121/71; PULSE 58; RESP 19; TEMP 98.4; O2SAT 98
--- NOTE | 2017-06-02 08:24 | HHI.PYPN ---
Subjective Remarks The patient was seen today for psychiatric reevaluation, the patient was discussed with nurse in charge and also with social science manager Eva, patient is found awake, alert, minimally engageable in a conversation, however, irritable, he reports good mood, he says that he feels much better today, he continues to be oriented just in person, disoriented in time and place, with episodes of verbal hostility during the day, but no acute agitation or aggressive behavior reported. The patient has been compliant with his medications, no significant side effects. He had a full night of sleep last night Mental Status Examination Appearance: Disheveled Consciousness: Alert Orientation: Person Motor Activity: Normal gait Speech: Hesitant Language: Adequate Fund of Knowledge: Inadequate Attention and Concentration: Easily Distracted Memory: Impaired Mood: Irritable Affect: Irritable Thought Process & Associations: Other Thought Content: Other Hallucination Type: None Delusion Type: None Suicidal Ideation: No Suicidal Plan: No Suicidal Intention: No Homicidal Ideation: Yes Homicidal Plan: No Homicidal Intention: No Insight: Poor Judgment: Impulsive Results Vitals/IOs Vital Signs Date Time Temp Pulse Resp B/P (MAP) Pulse Ox O2 Delivery O2 Flow Rate FiO2 06/02/17 06:00 98.4 58 19 121/71 (88) 98 05/29/17 08:30 Room Air Intake and Output 06/02/17 06/02/17 06/03/17 08:00 16:00 00:00 Intake Total 0 ml Balance 0 ml Assessment & Plan Problem List: (1) Dementia of Alzheimer's type with behavioral disturbance ICD Codes: G30.8 - Other Alzheimer's disease; F02.81 - Dementia in other diseases classified elsewhere with behavioral disturbance Status: Acute (2) Dementia in other diseases classified elsewhere with behavioral disturbance ICD Codes: F02.81 - Dementia in other diseases classified elsewhere with behavioral disturbance Assessment & Plan: Patient continues to show episodic irritability, verbal hostility, agitation, will add Seroquel 25 mg during the morning for his behavioral dysregulation. Assessment & Plan Estimated LOS: days Justification for Cont. Inpt. Patient has an elevated risk to decompensate at a lower level of care. Jasiel Zamarripa MD Jun 02, 2017 08:24
[2017-06-02] MEDS: DONEPEZIL HCL 5 MG TAB PO SCH ×2 (09:12→21:20)
[2017-06-02] MEDS: PANTOPRAZOLE SOD 20 MG DELAYED RELEASE TAB PO SCH (09:12)
[2017-06-02] MEDS: LISINOPRIL 5 MG TAB PO SCH (09:12)
[2017-06-02] MEDS: QUEtiapine FUMARATE 25 MG TAB PO SCH ×2 (09:12→21:21)
[2017-06-02] MEDS: MEMANTINE HCL 10 MG TAB PO SCH (09:12)
[2017-06-02] MEDS: WARFARIN SOD 5 MG TAB PO SCH (17:00)
[2017-06-02 17:47] VITALS: BP 121/70; PULSE 72; RESP 20; TEMP 98.7; O2SAT 97
[2017-06-03 05:38] VITALS: BP 133/77; PULSE 50; RESP 17; TEMP 97.8; O2SAT 98
[2017-06-03] MEDS: LISINOPRIL 5 MG TAB PO SCH (08:12)
[2017-06-03] MEDS: QUEtiapine FUMARATE 25 MG TAB PO SCH ×2 (08:12→20:45)
[2017-06-03] MEDS: DONEPEZIL HCL 5 MG TAB PO SCH ×2 (08:12→20:45)
[2017-06-03] MEDS: MEMANTINE HCL 10 MG TAB PO SCH (08:12)
[2017-06-03] MEDS: PANTOPRAZOLE SOD 20 MG DELAYED RELEASE TAB PO SCH (08:12)
[2017-06-03] MEDS: WARFARIN SOD 5 MG TAB PO SCH (15:41)
[2017-06-03 18:00] VITALS: BP 126/71; PULSE 84; RESP 17; TEMP 97.9; O2SAT 98
--- NOTE | 2017-06-03 18:34 | HHI.PYPN ---
Subjective Remarks patient was seen and case discussed with nursing. Pt is pleasant and cooperative with exam. He is AAOx1, confused. Has a bizarre delusion that his future , Rebecca, is calling today. Poor insight into admission. Mental Status Examination Appearance: Disheveled Consciousness: Alert Orientation: Person Motor Activity: Normal gait Speech: Hesitant Language: Adequate Fund of Knowledge: Inadequate Attention and Concentration: Easily Distracted Memory: Impaired Mood: Irritable Affect: Irritable, Blunt Thought Process & Associations: Other Thought Content: Other Hallucination Type: None Delusion Type: None Suicidal Ideation: No Suicidal Plan: No Suicidal Intention: No Homicidal Ideation: No Homicidal Plan: No Homicidal Intention: No Insight: Poor Judgment: Poor Results Vitals/IOs Vital Signs Date Time Temp Pulse Resp B/P (MAP) Pulse Ox O2 Delivery O2 Flow Rate FiO2 06/03/17 18:00 97.9 84 17 126/71 (89) 98 Intake and Output 06/03/17 06/03/17 06/04/17 08:00 16:00 00:00 Intake Total 360 ml 840 ml 1080 ml Balance 360 ml 840 ml 1080 ml Assessment & Plan Problem List: (1) Dementia of Alzheimer's type with behavioral disturbance ICD Codes: G30.8 - Other Alzheimer's disease; F02.81 - Dementia in other diseases classified elsewhere with behavioral disturbance Status: Acute (2) Dementia in other diseases classified elsewhere with behavioral disturbance ICD Codes: F02.81 - Dementia in other diseases classified elsewhere with behavioral disturbance Assessment & Plan continue current treatment plan Justification for Cont. Inpt. Patient would decompensate in a less restrictive setting Chapito Harrison DO Jun 03, 2017 18:34
[2017-06-04 06:02] VITALS: BP 149/85; PULSE 71; RESP 20; TEMP 97.6; O2SAT 96
[2017-06-04] MEDS: QUEtiapine FUMARATE 25 MG TAB PO SCH ×2 (08:20→21:59)
[2017-06-04] MEDS: PANTOPRAZOLE SOD 20 MG DELAYED RELEASE TAB PO SCH (08:20)
[2017-06-04] MEDS: LISINOPRIL 5 MG TAB PO SCH (08:20)
[2017-06-04] MEDS: DONEPEZIL HCL 5 MG TAB PO SCH ×2 (08:20→21:59)
[2017-06-04] MEDS: MEMANTINE HCL 10 MG TAB PO SCH (08:20)
[2017-06-04 09:40] LABS: INTERNATIONAL NORMALIZED RATIO 1.5 RATIO
--- NOTE | 2017-06-04 14:06 | HHI.PYPN ---
Subjective Remarks Pt was seen and case discussed with nursing. Pt is pleasant and cooperative with exam. AAOX2, mildly confused, thinks it is 1994, continues with fixed delusion about a future named Rebecca, spoke to daughter per nursing. Compliant with medication, no verbal/physical outbursts. Mental Status Examination Appearance: Disheveled Consciousness: Alert Orientation: Person Motor Activity: Normal gait Speech: Hesitant Language: Adequate Fund of Knowledge: Inadequate Attention and Concentration: Easily Distracted Memory: Impaired Mood: Irritable Affect: Irritable, Blunt Thought Process & Associations: Other Thought Content: Other Hallucination Type: None Delusion Type: None Suicidal Ideation: No Suicidal Plan: No Suicidal Intention: No Homicidal Ideation: No Homicidal Plan: No Homicidal Intention: No Insight: Poor Judgment: Poor Results Labs Test 06/04/17 08:08 Prothrombin Time 15.0 SEC Prothromb Time International Ratio 1.5 RATIO Vitals/IOs Vital Signs Date Time Temp Pulse Resp B/P (MAP) Pulse Ox O2 Delivery O2 Flow Rate FiO2 06/04/17 06:02 97.6 71 20 149/85 (106) 96 Intake and Output 06/04/17 06/04/17 06/05/17 08:00 16:00 00:00 Intake Total 240 ml 240 ml Balance 240 ml 240 ml Assessment & Plan Problem List: (1) Dementia of Alzheimer's type with behavioral disturbance ICD Codes: G30.8 - Other Alzheimer's disease; F02.81 - Dementia in other diseases classified elsewhere with behavioral disturbance Status: Acute (2) Dementia in other diseases classified elsewhere with behavioral disturbance ICD Codes: F02.81 - Dementia in other diseases classified elsewhere with behavioral disturbance Assessment & Plan Continue current treatment plan. Justification for Cont. Inpt. Patient would decompensate in a less restrictive setting. Chapito Harrison DO Jun 04, 2017 14:06
[2017-06-04] MEDS: WARFARIN SOD 5 MG TAB PO SCH (15:51)
[2017-06-04 18:00] VITALS: BP 118/76; PULSE 59; RESP 16; TEMP 97.9; O2SAT 98
[2017-06-05 06:30] VITALS: BP 125/81; PULSE 64; RESP 17; TEMP 97.9; O2SAT 98
[2017-06-05] MEDS: PANTOPRAZOLE SOD 20 MG DELAYED RELEASE TAB PO SCH (08:37)
[2017-06-05] MEDS: MEMANTINE HCL 10 MG TAB PO SCH (08:37)
[2017-06-05] MEDS: DONEPEZIL HCL 5 MG TAB PO SCH (08:37)
[2017-06-05] MEDS: LISINOPRIL 5 MG TAB PO SCH (08:37)
[2017-06-05] MEDS: QUEtiapine FUMARATE 25 MG TAB PO SCH (08:38)
--- NOTE | 2017-06-05 08:49 | HHI.PYPN ---
Subjective Remarks Patient was seen today for psychiatric reevaluation. Case was discussed with the nursing charge. Weekend rounding psychiatrist notes reviewed. On evaluation today patient is found in his bed, eating his breakfast, he is calm and cooperative, pleasantly confused and disoriented. She knows that he is in the hospital, but he things that is 1983. Patient denies depressive symptoms, he denies anxiety, he denies suicidal and homicidal ideation. He has been compliant with medications, significant side effects, no agitation or aggressive behavior described during this weekend. Review of Systems Psychiatric: COMPLAINS OF: Confusion Except as stated in HPI: all other systems reviewed are Neg Mental Status Examination Appearance: Disheveled Consciousness: Alert Orientation: Person Motor Activity: Normal gait Speech: Hesitant Language: Adequate Fund of Knowledge: Inadequate Attention and Concentration: Easily Distracted Memory: Impaired Mood: Irritable Affect: Irritable, Blunt Thought Content: Other Hallucination Type: None Delusion Type: None Suicidal Ideation: No Suicidal Plan: No Suicidal Intention: No Homicidal Ideation: No Homicidal Plan: No Homicidal Intention: No Insight: Fair Judgment: Impulsive Results Vitals/IOs Vital Signs Date Time Temp Pulse Resp B/P (MAP) Pulse Ox O2 Delivery O2 Flow Rate FiO2 06/05/17 06:30 97.9 64 17 125/81 (96) 98 Intake and Output 06/05/17 06/05/17 06/06/17 08:00 16:00 00:00 Intake Total 480 ml Balance 480 ml Assessment & Plan Problem List: (1) Dementia of Alzheimer's type with behavioral disturbance ICD Codes: G30.8 - Other Alzheimer's disease; F02.81 - Dementia in other diseases classified elsewhere with behavioral disturbance Status: Acute (2) Dementia in other diseases classified elsewhere with behavioral disturbance ICD Codes: F02.81 - Dementia in other diseases classified elsewhere with behavioral disturbance Assessment & Plan: Continue current psychotropic regimen. Monitor behavior and mood. Assessment & Plan Estimated LOS: days Justification for Cont. Inpt. Patient has an increased risk to decompensate at a lower level of care. Jaisel Zamarripa MD Jun 05, 2017 08:49
[2017-06-05 08:59] LABS: INTERNATIONAL NORMALIZED RATIO 1.5 RATIO; PROTHROMBIN TIME - PATIENT 15.4 SEC (9.8-11.6)
[2017-06-05] MEDS ORDERED: ARIC5TAB6 PO (12:36)
[2017-06-05] MEDS ORDERED: NAME10TA PO (12:36)
[2017-06-05] MEDS ORDERED: SERO25TA PO (12:36)
--- NOTE | 2017-06-05 12:37 | HHI.DS ---
Psychiatry Discharge Summary Inpatient Psychiatric care?: Yes Advance Directive: Yes Mental Health AdvanceDirective: No Health Care Proxy: Yes Admission Admission Date May 29, 2017 at 12:28 Admission Diagnosis: (1) Dementia in other diseases classified elsewhere with behavioral disturbance ICD Code: F02.81 - Dementia in other diseases classified elsewhere with behavioral disturbance Brief History 76-year-old male brought in under a [employer] act for making threats to run over a bone worker. Patient has dementia and is a poor historian. He indicated he has no children when he has a daughter and grandchild that may live locally. He indicated his 2 months ago, but this is unverified. He is unable to provide a history as to what happened at the post office this morning as he does not reportedly remember. When asked where he lives, he simply states that he lives in a house in [place], with 2 cats. He was unable or unwilling to provide the city or the address. Apparently the patient was seen by law enforcement at the post office after a friend stated the patient's behavior was concerning. According to the officer, Mr. Missy Crain felt he was in a town in [place], waiting for the post office to open. The patient did not know he was in [place] or what year it is or who the president is. The patient stated he wanted to run over a bone worker if the post office did not open soon enough. The patient was [employer] acted at 7:25 AM and the officer apparently recognized the post office did not open until 8: 30 AM. The patient is a 76 years old man, domiciled alone, , supported by long-term benefits, he denies previous psychiatric history, he denies previous medical history, denies the use of illicit drugs and alcohol, he was brought to the hospital on the [employer] act ago she was found in the postal service confused is oriented. Consulted to me for second opinion. On psychiatric evaluation the patient is resistant, oppositional, very irritable. Patient is requesting to be discharged because he has to go back home to take care of his 2 cats. Patient says that his 2 months ago. Patient doesn't know the reason is in the hospital. He knows that he is in the hospital, but he doesn't know the town in which lives, he knows is May 2017. He denies suicidal and homicidal ideation, he denies visual and auditory hallucinations. Patient is verbally hostile, at times loud, but redirectable. Tobacco Use In Past 30 Days: Cognitive Impairment Alcohol Use: Never Results Blood Pressure 125 / 81 Vital Signs Date Time Temp Pulse Resp B/P (MAP) Pulse Ox O2 Delivery O2 Flow Rate FiO2 06/05/17 06:30 97.9 64 17 125/81 (96) 98 Laboratory Tests Test 06/04/17 08:08 06/05/17 08:21 Prothrombin Time 15.0 SEC (9.8-11.6) 15.4 SEC (9.8-11.6) Laboratory Results Test 05/30/17 10:45 Cholesterol Level 187 MG/DL (120-200) HDL Cholesterol 80.1 MG/DL (40.0-60.0) Hemoglobin A1c 5.7 % (4.3-6.0) LDL Cholesterol 101 MG/DL (0-99) Triglycerides Level 32 MG/DL (42-150) Summary of Procedures None Pending results at discharge: No Medications # of Antipsychotic meds at D/C: 1 Approp Antipsych med options 1 - Minimum of three failed multiple trials of monotherapy. 2 - Documented plan to taper to monotherapy due to previous use of multiple meds OR cross-taper in progress at D/C. 3 - Documentation of augmentation of Clozapine. 4 - Justification other than those listed in allowable values 1-3, document here : Discharge Discharge Diagnosis: (1) Dementia in other diseases classified elsewhere with behavioral disturbance ICD Code: F02.81 - Dementia in other diseases classified elsewhere with behavioral disturbance Pt Condition on Discharge: Stable Discharge Disposition: Discharge to SNF Discharge Instructions Diet Instructions: Heart Healthy Diet Activities you can perform: Weight Bearing as Hollie Scheduled Appointment: Discharge Time > 30 minutes Mental Status Examination Appearance: Disheveled Consciousness: Alert Orientation: Person Motor Activity: Normal gait Speech: Hesitant Language: Adequate Fund of Knowledge: Inadequate Attention and Concentration: Easily Distracted Memory: Impaired Mood: Irritable Affect: Irritable, Blunt Thought Content: Other Hallucination Type: None Delusion Type: None Suicidal Ideation: No Suicidal Plan: No Suicidal Intention: No Homicidal Ideation: No Homicidal Plan: No Homicidal Intention: No Insight: Fair Judgment: Impulsive Discharge/Advance Care Plan Health Problems: (1) Dementia of Alzheimer's type with behavioral disturbance (2) Dementia in other diseases classified elsewhere with behavioral disturbance Goals to promote your health * To prevent worsening of your condition and complications * To maintain your health at the optimal level Directions to meet your goals Take your medications as prescribed Follow your dietary instruction Follow activity as directed Keep your appointments as scheduled Take your immunizations and boosters as scheduled If your symptoms worsen call your PCP, if no PCP go to Urgent Care Center or Emergency Room For 09/01 questions related to your inpatient stay or results of tests pending at discharge, please contact Dr. Jasiel Zamarripa at Smoking is Dangerous to Your Health. Avoid second hand smoking Jasiel Zamarripa MD Jun 05, 2017 12:37
[2017-06-05] MEDS ORDERED: WARF-23 PO (15:54)
[2017-06-05] MEDS ORDERED: LISI-519 PO (15:54)
[2017-06-05] MEDS ORDERED: OMEP20TA93 PO (15:54)
[2017-06-05 18:08] VITALS: BP 115/72; PULSE 63; RESP 17; TEMP 97.7; O2SAT 97
== END 2017-06-05 18:45 | DRG 57 ==
LOC: NEPC 08:12 → NEDA 12:28 → H250 14:15 → H4EA 05-30 17:30
PROVIDERS: ADMIT Psychiatry & Neurology Psychiatry; ATTEND Psychiatry & Neurology Psychiatry
DX: G30.9 Alzheimer's disease, unspecified (principal); F02.81 Dementia in other diseases classified elsewhere, unspecified severity, with behavioral disturbance; E80.20 Unspecified porphyria; I48.0 Paroxysmal atrial fibrillation; I10 Essential (primary) hypertension; R79.1 Abnormal coagulation profile; Z79.01 Long term (current) use of anticoagulants; G89.29 Other chronic pain; M54.9 Dorsalgia, unspecified; M19.90 Unspecified osteoarthritis, unspecified site; E78.5 Hyperlipidemia, unspecified
CPT/HCPCS: 80048; 80053; 80061; 80162; 80307; 81001; 82306; 82607; 83036; 84439; 84443; 85025; 85610; 85730; 93005